=== PATIENT | male | born 1970 | race African-American/Black ===

== ENCOUNTER 2016-11-13 06:15 | Day surgery (SDC) | payer MEDICARE, MEDICAID ==
[2016-11-13 07:22] LABS: HEMATOCRIT 32.7 % (37.9-51.0); HEMOGLOBIN 10.3 g/dL (13.5-17.0); HGB HCT DIFFERENCE -1.8; MEAN CORPUSCULAR HEMOGLOBIN 26.1 pg (27.0-33.4); MEAN CORPUSCULAR HGB CONC 31.5 g/dL (32.0-36.0); MEAN CORPUSCULAR VOLUME 83 fl (80-97); RED BLOOD COUNT 3.94 10^6/uL (4.35-5.55); RED CELL DISTRIBUTION WIDTH 14.8 % (11.5-14.0); WHITE BLOOD COUNT 5.8 10^3/uL (4.0-10.5)
[2016-11-13 07:50] LABS: ANION GAP 17 (5-19); BLOOD UREA NITROGEN 39 mg/dL (7-20); CALCIUM 9.2 mg/dL (8.4-10.2); CARBON DIOXIDE 27 mmol/L (22-30); CHLORIDE 101 mmol/L (98-107); CREATININE RESULT 10.19 mg/dL (0.52-1.25); GLUCOSE 79 mg/dL (75-110); POTASSIUM 4.3 mmol/L (3.6-5.0); SODIUM 144.5 mmol/L (137-145)
[2016-11-13] MEDS ORDERED: LISINOPRIL 5 MG TABLET PO ONE (09:00)
--- NOTE | 2016-11-13 10:29 | PDOC DISCHARGE SUMMARY ---
Discharge Summary (SDC) - Discharge Final Diagnosis: #1 malfunctioning transposed basilic vein fistula of the right upper extremity. #2 right upper extremity swelling. #3 end-stage renal disease on hemodialysis. #4 hypertension. Date of Surgery: 11/13/16 Discharge Date: 11/13/16 Condition: Good Treatment or Instructions: #1 activities within moderation encouraged. #2 follow up in my office by appointment in about 1 month. Call for appointment. #3 the wounds covered clean and dry until hemodialysis. #4 hold off on school/work until evaluation in office. #5 may shower in 48 hours, keep operated area as dry as possible. #6 discharge from ambulatory when ASU criteria met. #7 medications per medication reconciliation sheet. #8 May have one Percocet up to every 4 hours when necessary for pain greater than 4 out of 10 while in the ASU Discharge Diet: Other (Comments) - Renal Respiratory Treatments at Home: Deep Breathing/Coughing Discharge Activity: Activity As Tolerated Report the Following to Your Physician Immediately: Unusual Bleeding
[2016-11-13 11:18] VITALS: BP 187/95
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
--- NOTE | 2016-11-13 14:04 | Operative Report ---
Operative Report DATE OF SURGERY: 11/13/16 PREOPERATIVE DIAGNOSIS: #1 malfunctioning arteriovenous fistula, right transposed basilic to brachial. #2 end-stage renal disease on hemodialysis. # 3 hypertension POSTOPERATIVE DIAGNOSIS: #1 malfunctioning arteriovenous fistula, right transposed basilic to brachial. #2 end-stage renal disease on hemodialysis. # 3 hypertension OPERATION: #1 ultrasound evaluation and real-time access into right arm arteriovenous fistula. #2 angioplasty centrally in the innominate subclavian junction. #3 angioplasty in [place] arteriovenous fistula. #4 angiogram and interpretation. SURGEON: AMANDA SAENZ CRM SOLUTION ARCHITECT: none ANESTHESIA: Moderate Sedation TISSUE REMOVED OR ALTERED: Not applicable. COMPLICATIONS: None ESTIMATED BLOOD LOSS: 2 mL. INTRAOPERATIVE FINDINGS: Of extreme swelling in the right upper extremity to the point was somewhat challenging to palpate the fistula. It was successfully visualized on ultrasound. Considerable edema noted particularly in the distal arm. The fistula itself was accessed under ultrasound guidance. The fistula had a moderate area of stenosis within it. Otherwise a main stenosis was be in the stent at about the subclavian to innominate junction.This estimated to be about 80% of the adjacent lumen. Successfully addressed up to 10 mm. Much improved flow after angioplasty. Anticipation of decreased swelling also. PROCEDURE: PROCEDURE: After verifying the procedure and having obtained informed consent, the patient's right arm was prepared with Chlorhexidine and draped out with sterile linen. Local anesthesia infiltrated. Percutaneous access into the fistula ,[ antegrade], obtained about [6 cm] from the arteriovenous anastomosis using a micro puncture needle followed by micro puncture wire and then a micro puncture catheter. This was done under real-time ultrasound guidance. Angiogram demonstrated the aforementioned findings. Angioplasty was elected. A 0.035 [place] wire was inserted, and over this, a 7 [place] short introducer was placed, this was followed by a [7-mm ] angioplasty balloon . Angioplasty was done from the upper superior vena cava to the subclavian. This was done using a 9 mm angioplasty balloon. Inflating up to 14 khoi for 2 minutes. Completion angiogram demonstrated residual stenosis. A 10 mm angioplasty balloon was inserted over the area of stenosis and inflated up to 14 khoi. After deflation a completion angiogram demonstrated resolution of the stenosis. The 10 mm angioplasty balloon was now inflated sequentially serially done from the upper fistula down to the introducer. Inflating up to 10 atmospheres for 30 seconds at a time.]. Completion angiogram demonstrated [satisfactory result]. The instrumentation was now withdrawn over firm pressure. Dressings applied, procedure concluded. Exposure time: 1.9 minutes Radiation: 118/cm Contrast: 25 mils of Isovue-M 300, low osmolality. DICTATING PHYSICIAN: AMANDA CRAWFORD M.D. cc: AMANDA CRAWFORD M.D. ([id number]) >>
== END 2016-11-13 11:10 | disposition home or self-care (01) ==
LOC: CCL 06:15
PROVIDERS: ATTEND Surgery
PROC: 05793DZ Dilation of Right Brachial Vein with Intraluminal Device, Percutaneous Approach (ICD-10-PCS; principal; 2016-11-13)
DX: T82.858A Stenosis of other vascular prosthetic devices, implants and grafts, initial encounter (principal); Y83.2 Surgical operation with anastomosis, bypass or graft as the cause of abnormal reaction of the patient, or of later complication, without mention of misadventure at the time of the procedure; I12.0 Hypertensive chronic kidney disease with stage 5 chronic kidney disease or end stage renal disease; N18.6 End stage renal disease; Z99.2 Dependence on renal dialysis; Z79.899 Other long term (current) drug therapy
CPT/HCPCS: 36415; 85027; 80048; 36907; 36902; 76937; C1725; C1752; Q9967; C1769; J2250; J1644 ×2; J3010; J3490; A9270

== ENCOUNTER 2016-12-06 12:16 | Emergency (ER) | payer MEDICARE, MEDICAID ==
[2016-12-06 14:05] LABS: ABSOLUTE EOSINOPHILS # (AUTO) 0.2 10^3/uL (0.0-0.6); ABSOLUTE LYMPHOCYTES (AUTO) 1.3 10^3/uL (0.5-4.7); ABSOLUTE MONOCYTES (AUTO) 0.6 10^3/uL (0.1-1.4); ABSOLUTE NEUT (AUTO) 3.8 10^3/uL (1.7-8.2); BASOPHILS % (AUTO) 0.7 % (0-2); EOSINOPHILS % (AUTO) 2.9 % (0-6); HEMATOCRIT 29.8 % (37.9-51.0); HEMOGLOBIN 9.6 g/dL (13.5-17.0); LYMPHOCYTES % (AUTO) 22.4 % (13-45); MEAN CORPUSCULAR HEMOGLOBIN 26.3 pg (27.0-33.4); MEAN CORPUSCULAR HGB CONC 32.3 g/dL (32.0-36.0); MEAN CORPUSCULAR VOLUME 81 fl (80-97); MONOCYTES % (AUTO) 9.7 % (3-13); RED BLOOD COUNT 3.67 10^6/uL (4.35-5.55); RED CELL DISTRIBUTION WIDTH 14.3 % (11.5-14.0); SEGMENTED NEUTROPHILS % (AUTO) 64.3 % (42-78); WHITE BLOOD COUNT 5.9 10^3/uL (4.0-10.5)
[2016-12-06 14:22] LABS: ALANINE AMINOTRANSFERASE 17 U/L (21-72); ALBUMIN 4.5 g/dL (3.5-5.0); ALKALINE PHOSPHATASE 161 U/L (38-126); ANION GAP 18 (5-19); ASPARTATE AMINO TRANSFERASE 27 U/L (17-59); BILIRUBIN,DIRECT 0.5 mg/dL (0.0-0.4); BILIRUBIN,TOTAL 0.7 mg/dL (0.2-1.3); BLOOD UREA NITROGEN 62 mg/dL (7-20); CALCIUM 9.1 mg/dL (8.4-10.2); CARBON DIOXIDE 28 mmol/L (22-30); CHLORIDE 100 mmol/L (98-107); CREATINE KINASE 114 U/L (55-170); GLUCOSE 82 mg/dL (75-110); POTASSIUM 4.8 mmol/L (3.6-5.0); SODIUM 145.6 mmol/L (137-145); TOTAL PROTEIN 7.5 g/dL (6.3-8.2)
[2016-12-06] MEDS ORDERED: OXYCODONE-ACETAMINOPHEN 5-325 MG TABLET PO ONE (14:28)
[2016-12-06 14:29] LABS: CREATININE RESULT 16.26 mg/dL (0.52-1.25)
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
[2016-12-06 14:34] LABS: CREATINE KINASE MB 2.2 ng/mL (<4.55)
[2016-12-06] MEDS ORDERED: HYDRALAZINE HCL INJ/PF 20 MG/1 ML SDV IV ONE (14:34)
[2016-12-06 15:07] LABS: TROPONIN I 0.081 ng/mL
--- NOTE | 2016-12-06 15:07 | EKG REPORT ---
SEVERITY:- ABNORMAL ECG - SINUS RHYTHM PROBABLE LEFT ATRIAL ABNORMALITY NONSPECIFIC INTRAVENTRICULAR CONDUCTION DELAY LVH WITH SECONDARY REPOLARIZATION ABNORMALITY LATERAL Q WAVES, PROBABLY DUE TO LVH : Confirmed by: Aalyiah Campuzano 06-Dec-2016 15:06:19
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
[2016-12-06 20:56] VITALS: BP 166/94
== END 2016-12-06 20:59 | disposition home or self-care (01) ==
LOC: ER 12:16
PROC: 5A1D00Z (ICD-10-PCS; principal; 2016-12-06)
DX: I12.0 Hypertensive chronic kidney disease with stage 5 chronic kidney disease or end stage renal disease (principal); N18.6 End stage renal disease; Z99.2 Dependence on renal dialysis; Z91.15 Patient's noncompliance with renal dialysis; D63.1 Anemia in chronic kidney disease; J81.0 Acute pulmonary edema; R53.1 Weakness; R06.02 Shortness of breath; R05 Cough
CPT/HCPCS: 90970; 93005; 99291; 36415; 82553; 82550; 85025; 80053; 84484; 83880; 71010; 93010; A9270

== ENCOUNTER 2017-05-25 11:43 | Emergency (ER) | payer MEDICARE, MEDICAID ==
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
--- NOTE | 2017-05-25 12:43 | RADIOLOGY REPORT (SQ) ---
EXAM DESCRIPTION: CHEST PA/LAT COMPLETED DATE/TIME: 05/25/2017 12:19 pm REASON FOR STUDY: sob COMPARISON: 12/06/2016 NUMBER OF VIEWS: Two view TECHNIQUE: Frontal and lateral radiographic images of the chest acquired. LIMITATIONS: None. FINDINGS: LUNGS AND PLEURA: Interstitial edema. Small pleural effusions. MEDIASTINUM AND HILAR STRUCTURES: Stable heart size and mediastinal structures. HEART AND VASCULAR STRUCTURES: Cardiomegaly. Pulmonary vascular congestion. Stent overlying right a pex. BONES: No acute findings. HARDWARE: None in the chest. OTHER: No other significant finding. IMPRESSION: Congestive heart failure. TECHNICAL DOCUMENTATION: JOB ID: [id number] [employer]- All Rights Reserved
[2017-05-25 13:35] LABS: ALANINE AMINOTRANSFERASE 16 U/L (21-72); ALBUMIN 4.1 g/dL (3.5-5.0); ALKALINE PHOSPHATASE 130 U/L (38-126); ANION GAP 16 (5-19); ASPARTATE AMINO TRANSFERASE 27 U/L (17-59); BILIRUBIN,DIRECT 0.6 mg/dL (0.0-0.4); BILIRUBIN,TOTAL 0.7 mg/dL (0.2-1.3); BLOOD UREA NITROGEN 67 mg/dL (7-20); CALCIUM 8.9 mg/dL (8.4-10.2); CARBON DIOXIDE 29 mmol/L (22-30); CHLORIDE 101 mmol/L (98-107); CREATININE RESULT 13.42 mg/dL (0.52-1.25); GLUCOSE 106 mg/dL (75-110); POTASSIUM 4.5 mmol/L (3.6-5.0); SODIUM 145.8 mmol/L (137-145); TOTAL PROTEIN 7.3 g/dL (6.3-8.2)
[2017-05-25 13:36] LABS: ABSOLUTE BASOPHILS # (AUTO) 0.1 10^3/uL (0.0-0.2); ABSOLUTE EOSINOPHILS # (AUTO) 0.1 10^3/uL (0.0-0.6); ABSOLUTE LYMPHOCYTES (AUTO) 1.9 10^3/uL (0.5-4.7); ABSOLUTE MONOCYTES (AUTO) 0.4 10^3/uL (0.1-1.4); ABSOLUTE NEUT (AUTO) 3.6 10^3/uL (1.7-8.2); BASOPHILS % (AUTO) 1.5 % (0-2); EOSINOPHILS % (AUTO) 1.9 % (0-6); HEMATOCRIT 33.3 % (37.9-51.0); HEMOGLOBIN 10.7 g/dL (13.5-17.0); HGB HCT DIFFERENCE -1.2; MEAN CORPUSCULAR HEMOGLOBIN 27.7 pg (27.0-33.4); MEAN CORPUSCULAR HGB CONC 32.3 g/dL (32.0-36.0); MEAN CORPUSCULAR VOLUME 86 fl (80-97); RED BLOOD COUNT 3.87 10^6/uL (4.35-5.55); RED CELL DISTRIBUTION WIDTH 13.9 % (11.5-14.0); SEGMENTED NEUTROPHILS % (AUTO) 58.6 % (42-78); WHITE BLOOD COUNT 6.2 10^3/uL (4.0-10.5)
[2017-05-25] MEDS ORDERED: NORMAL SALINE 1000 ML 1,000 ML IV PRN (16:22)
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
[2017-05-25] MEDS ORDERED: APIXABAN 5 MG TABLET PO ONE ×2 (17:12→20:00)
[2017-05-25] MEDS ORDERED: HEPARIN SOD (PORCINE) 1,000 UNIT/ML 10 ML VIAL ONE (17:25)
--- NOTE | 2017-05-25 17:27 | EKG REPORT ---
SEVERITY:- ABNORMAL ECG - SINUS RHYTHM VENTRICULAR PREMATURE COMPLEX SHORT MO INTERVAL, ACCELERATED AV CONDUCTION NONSPECIFIC INTRAVENTRICULAR CONDUCTION DELAY : Confirmed by: Aaliyah Campuzano 25-May-2017 17:26:20
--- NOTE | 2017-05-25 18:08 | RADIOLOGY REPORT (SQ) ---
EXAM DESCRIPTION: VENOUS UNILATERAL UPPER COMPLETED DATE/TIME: 05/25/2017 5:57 pm REASON FOR STUDY: bilateral Internal Jugular LUE EDEMA COMPARISON: None. TECHNIQUE: Dynamic and static santoro scale and color images acquired of the left arm venous system. Se lected spectral images acquired with additional compression and augmentation maneuvers. The contralat eral subclavian vein and internal jugular vein were also imaged. Images stored on PACS. LIMITATIONS: None. FINDINGS: INTERNAL JUGULAR VEIN: Normal phasicity, compression, augmentation. No visualized echogeni c material on santoro scale. No defects on color images. Comparison opposite side normal. SUBCLAVIAN VEIN: Normal compression, augmentation. No visualized echogenic material on santoro scale. No defects on color images. AXILLARY VEIN: Normal compression, augmentation. No visualized echogenic material on santoro scale. No d efects on color images. BRACHIAL VEIN: Normal compression, augmentation. No visualized echogenic material on santoro scale. No d efects on color images. BASILIC VEIN: Normal compression, augmentation. No visualized echogenic material on santoro scale. No de fects on color images. CEPHALIC VEIN: Normal compression, augmentation. No visualized echogenic material on santoro scale. No d efects on color images. OTHER: No other significant finding. CONTRALATERAL SUBCLAVIAN VEIN AND INTERNAL JUGULAR VEIN: Thrombus is present in the right internal jugular vein and proximal right subclavian vein. IMPRESSION: 1. NO EVIDENCE DVT OR SVT RIGHT OR LEFT ARM. 2. THERE IS THROMBOSIS OF THE RIGHT INTERNAL JUGULAR VEIN AND PROXIMAL RIGHT SUBCLAVIAN VEIN. TECHNICAL DOCUMENTATION: JOB ID: [id number] [employer]- All Rights Reserved
[2017-05-25] MEDS ORDERED: HEPARIN SOD (PORCINE) 1,000 UNIT/ML 10 ML VIAL IV PRN (18:45)
[2017-05-25] MEDS ORDERED: OXYCODONE-ACETAMINOPHEN 5-325 MG TABLET PO ONE (19:28)
[2017-05-25 19:36] VITALS: BP 182/90
== END 2017-05-25 20:30 | disposition home or self-care (01) ==
LOC: ER 11:43
DX: I82.B19 Acute embolism and thrombosis of unspecified subclavian vein (principal); I82.C11 Acute embolism and thrombosis of right internal jugular vein; I50.42 Chronic combined systolic (congestive) and diastolic (congestive) heart failure; I15.1 Hypertension secondary to other renal disorders; Z91.15 Patient's noncompliance with renal dialysis; R22.0 Localized swelling, mass and lump, head
CPT/HCPCS: 93005; 99284; 36415; 85025; 80053; 83880; 93971; 71020; 93010; G0257; J1644; A9270 ×2

== ENCOUNTER 2017-08-14 09:18 | Emergency (ER) | payer MEDICARE, MEDICAID ==
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
[2017-08-14 10:16] LABS: ABSOLUTE EOSINOPHILS # (AUTO) 0.2 10^3/uL (0.0-0.6); ABSOLUTE LYMPHOCYTES (AUTO) 1.1 10^3/uL (0.5-4.7); ABSOLUTE MONOCYTES (AUTO) 0.5 10^3/uL (0.1-1.4); ABSOLUTE NEUT (AUTO) 3.2 10^3/uL (1.7-8.2); BASOPHILS % (AUTO) 0.8 % (0-2); EOSINOPHILS % (AUTO) 3.9 % (0-6); HEMATOCRIT 32.5 % (37.9-51.0); HEMOGLOBIN 10.3 g/dL (13.5-17.0); LYMPHOCYTES % (AUTO) 22.2 % (13-45); MEAN CORPUSCULAR HEMOGLOBIN 27.2 pg (27.0-33.4); MEAN CORPUSCULAR HGB CONC 31.9 g/dL (32.0-36.0); MEAN CORPUSCULAR VOLUME 85 fl (80-97); MONOCYTES % (AUTO) 10.6 % (3-13); PLATELET COUNT 220 10^3/uL (150-450); RED CELL DISTRIBUTION WIDTH 15.4 % (11.5-14.0); SEGMENTED NEUTROPHILS % (AUTO) 62.5 % (42-78); TOTAL CELLS COUNTED % (AUTO) 100 %; WHITE BLOOD COUNT 5.1 10^3/uL (4.0-10.5)
[2017-08-14 10:36] LABS: ANION GAP 17 (5-19); BLOOD UREA NITROGEN 48 mg/dL (7-20); CALCIUM 8.9 mg/dL (8.4-10.2); CARBON DIOXIDE 27 mmol/L (22-30); CHLORIDE 104 mmol/L (98-107); GLUCOSE 73 mg/dL (75-110); POTASSIUM 5.1 mmol/L (3.6-5.0); SODIUM 147.7 mmol/L (137-145)
[2017-08-14] MEDS ORDERED: OXYCODONE-ACETAMINOPHEN 5-325 MG TABLET PO ONE (10:44)
--- NOTE | 2017-08-14 11:16 | RADIOLOGY REPORT (SQ) ---
EXAM DESCRIPTION: CHEST PA/LAT COMPLETED DATE/TIME: 08/14/2017 11:06 am REASON FOR STUDY: missed dialysis, sob COMPARISON: 05/25/2017. NUMBER OF VIEWS: Two views. TECHNIQUE: Frontal and lateral radiographic views of the chest acquired. LIMITATIONS: None. FINDINGS: LUNGS AND PLEURA: No opacities, masses or pneumothorax. Bilateral pleural effusions. MEDIASTINUM AND HILAR STRUCTURES: No masses or contour abnormality. HEART AND VASCULAR STRUCTURES: Cardiac enlargement. Vascular congestion. BONES: No acute findings. HARDWARE: Right-sided stent. OTHER: No other significant finding. IMPRESSION: CARDIOMEGALY WITH VASCULAR CONGESTION AND BILATERAL PLEURAL EFFUSIONS. TECHNICAL DOCUMENTATION: JOB ID: [id number] [employer]- All Rights Reserved
--- NOTE | 2017-08-14 11:54 | EKG REPORT ---
SEVERITY:- ABNORMAL ECG - SINUS RHYTHM NONSPECIFIC INTRAVENTRICULAR CONDUCTION DELAY PROBABLE LATERAL INFARCT, AGE INDETERMINATE : Confirmed by: Aaliyah Campuzano 14-Aug-2017 11:53:19
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
[2017-08-14] MEDS ORDERED: LISINOPRIL 5 MG TABLET PO ONE (12:29)
[2017-08-14 14:00] VITALS: BP 181/85
== END 2017-08-14 14:00 | disposition home or self-care (01) ==
LOC: ER 09:18
DX: I12.0 Hypertensive chronic kidney disease with stage 5 chronic kidney disease or end stage renal disease (principal); N18.6 End stage renal disease; Z99.2 Dependence on renal dialysis; Z91.15 Patient's noncompliance with renal dialysis; J90 Pleural effusion, not elsewhere classified
CPT/HCPCS: 93005; 99285; 36415; 85025; 80048; 71020; 93010; A9270 ×2

== ENCOUNTER 2017-08-16 06:05 | Observation (INO) | payer MEDICARE, MEDICAID ==
[2017-08-16] MEDS ORDERED: ASPIRIN 81 MG TABLET, CHEWABLE PO ONE (06:27)
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
[2017-08-16 06:59] LABS: HEMATOCRIT 32.3 % (37.9-51.0); HEMOGLOBIN 10.4 g/dL (13.5-17.0); HGB HCT DIFFERENCE -1.1; MEAN CORPUSCULAR HEMOGLOBIN 27.1 pg (27.0-33.4); MEAN CORPUSCULAR HGB CONC 32.1 g/dL (32.0-36.0); MEAN CORPUSCULAR VOLUME 84 fl (80-97); RED BLOOD COUNT 3.84 10^6/uL (4.35-5.55); RED CELL DISTRIBUTION WIDTH 15.5 % (11.5-14.0)
--- NOTE | 2017-08-16 07:23 | RADIOLOGY REPORT (SQ) ---
EXAM DESCRIPTION: CHEST SINGLE VIEW CLINICAL HISTORY: 47 years, Male, Shortness of breath COMPARISON: 08/14/2017. NUMBER OF VIEWS: 1. TECHNIQUE: Frontal. LIMITATIONS: None. FINDINGS: Small left pneumothorax with pleural separation measuring 1.0 cm. Moderate bibasilar opacity-effusion. Moderate lung volume. Mild interstitial markings. Moderate enlargement of the cardiac silhouette. Stent material of the medial right upper hemithorax. IMPRESSION: New small left pneumothorax. Stable bibasilar opacity-effusion. 2011 [employer]- All Rights Reserved
[2017-08-16 07:26] LABS: ABSOLUTE EOSINOPHILS# (MANUAL) 0.1 10^3/uL (0.0-0.6); BASOPHILS % (MANUAL) 0 % (0-2); EOSINOPHILS % (MANUAL) 1 % (0-6); LYMPHOCYTES % (MANUAL) 25 % (13-45); TOTAL CELLS COUNTED 100
[2017-08-16 07:28] LABS: ANISOCYTOSIS SLIGHT; HYPOCHROMASIA SLIGHT; TOXIC GRANULATION SLIGHT
[2017-08-16 08:09] LABS: ALANINE AMINOTRANSFERASE 19 U/L (21-72); ALBUMIN 3.9 g/dL (3.5-5.0); ALKALINE PHOSPHATASE 115 U/L (38-126); ANION GAP 16 (5-19); ASPARTATE AMINO TRANSFERASE 25 U/L (17-59); BILIRUBIN,DIRECT 0.6 mg/dL (0.0-0.4); BILIRUBIN,TOTAL 0.6 mg/dL (0.2-1.3); BLOOD UREA NITROGEN 68 mg/dL (7-20); CALCIUM 8.4 mg/dL (8.4-10.2); CARBON DIOXIDE 25 mmol/L (22-30); CHLORIDE 106 mmol/L (98-107); CREATINE KINASE 88 U/L (55-170); CREATININE RESULT 12.55 mg/dL (0.52-1.25); GLUCOSE 74 mg/dL (75-110); POTASSIUM 5.3 mmol/L (3.6-5.0); SODIUM 146.6 mmol/L (137-145)
[2017-08-16 08:28] LABS: CREATINE KINASE MB 3.03 ng/mL (<4.55)
[2017-08-16 08:31] LABS: TROPONIN I 0.152 ng/mL
[2017-08-16] MEDS ORDERED: HYDROCODONE/ACETAMINOPHEN 5-325 MG TABLET PO ONE (09:14)
--- NOTE | 2017-08-16 09:21 | EKG REPORT ---
SEVERITY:- ABNORMAL ECG - SINUS RHYTHM NONSPECIFIC INTRAVENTRICULAR CONDUCTION DELAY PROBABLE ANTEROLATERAL INFARCT, OLD LVH WITH SECONDARY ST-T CHANGES : Confirmed by: Aaliyah Campuzano 16-Aug-2017 09:20:53
[2017-08-16] MEDS ORDERED: ACETAMINOPHEN 325 MG TABLET PO PRN (11:23)
[2017-08-16] MEDS ORDERED: OXYCODONE-ACETAMINOPHEN 5-325 MG TABLET PO PRN (11:23)
[2017-08-16] MEDS ORDERED: IPRATROPIUM/ALBUTEROL 0.5-2.5 MG/3 ML AMPUL NEB PRN (11:23)
[2017-08-16] MEDS ORDERED: ONDANSETRON HCL INJ/PF 4 MG/2 ML SDV IV PRN (11:23)
[2017-08-16] MEDS ORDERED: MAG HYDROX/AL HYDROX/SIMETH SUSP 30 ML UDCUP PO PRN (11:23)
[2017-08-16 11:42] LABS: PROTHROMBIN TIME 28.2 SEC (11.4-15.4)
[2017-08-16] MEDS: CALCIUM CARBONATE 500 MG TAB.CHEW PO SCH ×2 (11:49→18:04)
[2017-08-16] MEDS ORDERED: NORMAL SALINE 1000 ML 1,000 ML IV PRN (13:03)
[2017-08-16] MEDS ORDERED: DEXTROSE 40% GEL 15 GM TUBE PO PRN ×2 (13:07)
[2017-08-16] MEDS ORDERED: DEXTROSE 50%-WATER 25 GM/50 ML DISP.SYRIN IV PRN ×2 (13:07)
[2017-08-16] MEDS ORDERED: GLUCAGON,HUMAN RECOMB 1 MG INJ IM PRN (13:07)
[2017-08-16] MEDS ORDERED: INSULIN LISPRO 100 UNIT/ML 3 ML VIAL SUBCUT PRN (13:07)
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
[2017-08-16] MEDS ORDERED: HEPARIN SOD (PORCINE) 5,000 UNIT/ML 1 ML SYRINGE SUBCUT SCH (14:00)
[2017-08-16] MEDS: HYDRALAZINE HCL INJ/PF 20 MG/1 ML SDV IV PRN (18:04)
[2017-08-16] MEDS: OXYCODONE HCL IR 5 MG TABLET PO PRN (18:04)
[2017-08-16] MEDS ORDERED: WARFARIN SODIUM 5 MG TABLET PO SCH (22:00)
[2017-08-16] MEDS: FAMOTIDINE 20 MG TABLET PO SCH (22:38)
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
[2017-08-17] MEDS: OXYCODONE HCL IR 5 MG TABLET PO PRN ×2 (01:42→10:36)
[2017-08-17] MEDS ORDERED: NORMAL SALINE 1000 ML 1,000 ML IV PRN (05:00)
[2017-08-17 07:29] LABS: HEMATOCRIT 29.9 % (37.9-51.0); HEMOGLOBIN 9.6 g/dL (13.5-17.0); HGB HCT DIFFERENCE -1.1; MEAN CORPUSCULAR HEMOGLOBIN 26.9 pg (27.0-33.4); MEAN CORPUSCULAR VOLUME 84 fl (80-97); RED BLOOD COUNT 3.57 10^6/uL (4.35-5.55); RED CELL DISTRIBUTION WIDTH 14.7 % (11.5-14.0); WHITE BLOOD COUNT 5.1 10^3/uL (4.0-10.5)
[2017-08-17] MEDS: CALCIUM CARBONATE 500 MG TAB.CHEW PO SCH ×3 (07:41→18:56)
[2017-08-17 08:15] LABS: ANION GAP 15 (5-19); BLOOD UREA NITROGEN 49 mg/dL (7-20); CALCIUM 8.5 mg/dL (8.4-10.2); CARBON DIOXIDE 27 mmol/L (22-30); CHLORIDE 100 mmol/L (98-107); GLUCOSE 68 mg/dL (75-110); POTASSIUM 5.4 mmol/L (3.6-5.0); SODIUM 141.5 mmol/L (137-145)
[2017-08-17] MEDS ORDERED: DOCUSATE SODIUM 100 MG CAPSULE PO SCH (10:00)
[2017-08-17] MEDS ORDERED: MULTIVITAMIN TABLET PO SCH (10:00)
[2017-08-17] MEDS ORDERED: WARFARIN SODIUM PO SCH (10:00)
[2017-08-17] MEDS: FAMOTIDINE 20 MG TABLET PO SCH (10:36)
[2017-08-17 12:25] VITALS: BP 167/91
--- NOTE | 2017-08-17 12:36 | RADIOLOGY REPORT (SQ) ---
EXAM DESCRIPTION: CHEST PA/LAT COMPLETED DATE/TIME: 08/17/2017 7:53 am REASON FOR STUDY: dyspnea COMPARISON: 08/14/2017 EXAM PARAMETERS: NUMBER OF VIEWS: two views TECHNIQUE: Digital Frontal and Lateral radiographic views of the chest acquired. RADIATION DOSE: NA LIMITATIONS: none FINDINGS: LUNGS AND PLEURA: Bilateral pleural effusions are seen once again. Cannot exclude posteri or inferior infiltrate on the lateral view. MEDIASTINUM AND HILAR STRUCTURES: No masses or contour abnormalities. HEART AND VASCULAR STRUCTURES: Borderline cardiomegaly. BONES: No acute findings. HARDWARE: None in the chest. OTHER: No other significant finding. IMPRESSION: Borderline cardiomegaly with bilateral pleural effusions. Cannot exclude a lower lobe p neumonia. TECHNICAL DOCUMENTATION: JOB ID: [id number] [employer]- All Rights Reserved
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
--- NOTE | 2017-08-17 16:15 | PDOC PROGRESS REPORT ---
Subjective Progress Note for:: 08/17/17 Subjective:: I am seeing the patient on hemodialysis this afternoon. His facial swelling is actually improved compared to yesterday. Patient shortness of breath has resolved and he is breathing in room air good oxygen saturation. His blood pressure is slightly elevated during dialysis but usually this goes down at the end of dialysis treatment. He does not otherwise have other complaints. Reason For Visit: PNEUMOTHORAX, END-STAGE RENAL DISEASE Physical Exam Vital Signs: Temp Pulse Resp BP Pulse Ox 97.9 F 82 20 167/91 H 97 08/17/17 11:45 08/17/17 11:45 08/17/17 11:45 08/17/17 11:45 08/17/17 11:45 Intake & Output 08/16/17 08/17/17 08/18/17 06:59 06:59 06:59 Intake Total 544 Output Total 4900 Balance -4356 Weight 86.7 kg Vitals during dialysis at this time: Blood pressure 185/102, heart rate of 84, oxygen saturation 97% at room air, blood flow rate of 450 mL/min and dialysate flow rate of 800 mL/min. Exam: General appearance: PRESENT: no acute distress, cooperative, well-developed, well-nourished Head exam: PRESENT: atraumatic, normocephalic, facial swelling has improved compared to yesterday although he still has some swelling including right periorbital swelling but still better than yesterday. Eye exam: PRESENT: conjunctiva pink, PERRLA. ABSENT: scleral icterus Neck exam: ABSENT: JVD Respiratory exam: PRESENT: Normal breath sounds. ABSENT: crackles, rales, rhonchi, unlabored, wheezes Cardiovascular exam: PRESENT: Regular rate rhythm -+S1, +S2. ABSENT: diastolic murmur, systolic murmur GI/Abdominal exam: PRESENT: normal bowel sounds, soft. ABSENT: guarding, mass, tenderness Extremities exam: He has grade 1 bilateral lower extremity edema Neurological exam: PRESENT: alert, awake, oriented to person, place and time. Skin exam: PRESENT: dry, warm, Results Laboratory Results: 08/17/17 06:18 08/17/17 06:18 08/17/17 08/17/17 06:18 06:18 WBC 5.1 RBC 3.57 L Hgb 9.6 L Hct 29.9 L MCV 84 MCH 26.9 L MCHC 32.0 RDW 14.7 H Plt Count 179 Sodium 141.5 Potassium 5.4 H Chloride 100 Carbon Dioxide 27 Anion Gap 15 BUN 49 H Creatinine 9.50 H Est GFR ( Amer) 7 L Est GFR (Non-Af Amer) 6 L Glucose 68 L Calcium 8.5 08/16/17 08/16/17 11:27 17:34 Troponin I 0.138 0.140 Impressions: Chest X-Ray 08/17/17 06:00 IMPRESSION: Borderline cardiomegaly with bilateral pleural effusions. Cannot exclude a lower lobe pneumonia. Assessment & Plan - Diagnosis (1) End stage renal disease on dialysis Is this a current diagnosis for this admission?: Yes Plan: We are doing dialysis today for 3 hours, using the patient's AV fistula, with 2 potassium bath, blood flow rate of 450 mL per minute, dialysate flow rate of 800 mL per minute, ultrafiltration 4 L as tolerated, no heparin and no Procrit during dialysis . Patient will be monitored throughout dialysis treatment. After today's dialysis I think patient can be safely discharged home from nephrology standpoint if all other medical issues are doing fine. Patient should go back to his dialysis unit under the care of his senior clinical sas programmer in [place] and dialyzed there on his scheduled time. Patient is greatly encouraged to be compliant on his dialysis treatments. (2) Fluid overload Is this a current diagnosis for this admission?: Yes Plan: This is due to missing hemodialysis treatment. This is much improved with dialysis. (3) Anemia in chronic kidney disease (CKD) Is this a current diagnosis for this admission?: Yes (4) HTN (hypertension) Is this a current diagnosis for this admission?: Yes Plan: Slightly elevated during dialysis treatment but usually this comes down after dialysis and ultrafiltration. (5) Hyperkalemia Is this a current diagnosis for this admission?: Yes Plan: Mild. We use a low potassium bath at dialysis. (6) Hypernatremia Is this a current diagnosis for this admission?: Yes Plan: Resolved. (7) Pneumothorax Is this a current diagnosis for this admission?: Yes Plan: Defer to the hospitalist. - Time Time with patient: 15-25 minutes
[2017-08-17] MEDS: HYDRALAZINE HCL INJ/PF 20 MG/1 ML SDV IV PRN (18:57)
== END 2017-08-17 20:13 | disposition home or self-care (01) ==
LOC: ER 06:05 → INTOOBSV 11:17 → EH 11:17 → 5 17:01
PROVIDERS: ADMIT Internal Medicine; ATTEND Internal Medicine
PROC: 5A1D70Z Performance of Urinary Filtration, Intermittent, Less than 6 Hours Per Day (ICD-10-PCS; principal; 2017-08-16)
PROC: 5A1D70Z Performance of Urinary Filtration, Intermittent, Less than 6 Hours Per Day (ICD-10-PCS; 2017-08-17)
DX: J93.9 Pneumothorax, unspecified (principal); I51.7 Cardiomegaly; J90 Pleural effusion, not elsewhere classified; I13.2 Hypertensive heart and chronic kidney disease with heart failure and with stage 5 chronic kidney disease, or end stage renal disease; E11.22 Type 2 diabetes mellitus with diabetic chronic kidney disease; N18.6 End stage renal disease; I50.9 Heart failure, unspecified; D63.1 Anemia in chronic kidney disease; R79.89 Other specified abnormal findings of blood chemistry; E87.5 Hyperkalemia; E87.0 Hyperosmolality and hypernatremia; G89.21 Chronic pain due to trauma; M25.562 Pain in left knee; S81.002S Unspecified open wound, left knee, sequela; W34.00XS Accidental discharge from unspecified firearms or gun, sequela; I82.B21 Chronic embolism and thrombosis of right subclavian vein; E75.21 Fabry (-Anderson) disease; E66.01 Morbid (severe) obesity due to excess calories; L98.8 Other specified disorders of the skin and subcutaneous tissue; Z79.01 Long term (current) use of anticoagulants; Z99.2 Dependence on renal dialysis; Z91.15 Patient's noncompliance with renal dialysis; Z59.8 Other problems related to housing and economic circumstances; Z82.49 Family history of ischemic heart disease and other diseases of the circulatory system; Z84.1 Family history of disorders of kidney and ureter; Z68.26 Body mass index [BMI] 26.0-26.9, adult
CPT/HCPCS: 93005; 99291; 36415 ×2; 82553; 82962 ×2; 82550; 85025; 85027; 85610; 80048; 80053; 84484; 71020; 71010; 93010; 94640; G0378 ×3; A9270 ×13; J0360 ×2; J3490 ×2; G0257 ×2; J7620

== ENCOUNTER 2017-08-21 13:07 | Inpatient (IN) | payer MEDICARE, MEDICAID ==
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
[2017-08-21 14:05] LABS: ABSOLUTE EOSINOPHILS # (AUTO) 0.4 10^3/uL (0.0-0.6); ABSOLUTE LYMPHOCYTES (AUTO) 1.2 10^3/uL (0.5-4.7); ABSOLUTE MONOCYTES (AUTO) 0.5 10^3/uL (0.1-1.4); ABSOLUTE NEUT (AUTO) 2.9 10^3/uL (1.7-8.2); BASOPHILS % (AUTO) 0.5 % (0-2); EOSINOPHILS % (AUTO) 7.2 % (0-6); HEMATOCRIT 30.5 % (37.9-51.0); HEMOGLOBIN 9.9 g/dL (13.5-17.0); HGB HCT DIFFERENCE -0.8; LYMPHOCYTES % (AUTO) 23.3 % (13-45); MEAN CORPUSCULAR HEMOGLOBIN 26.8 pg (27.0-33.4); MEAN CORPUSCULAR HGB CONC 32.6 g/dL (32.0-36.0); MEAN CORPUSCULAR VOLUME 82 fl (80-97); MONOCYTES % (AUTO) 10.1 % (3-13); RED BLOOD COUNT 3.72 10^6/uL (4.35-5.55); SEGMENTED NEUTROPHILS % (AUTO) 58.9 % (42-78); WHITE BLOOD COUNT 4.9 10^3/uL (4.0-10.5)
[2017-08-21 14:12] LABS: PROTHROMBIN TIME 32.2 SEC (11.4-15.4)
[2017-08-21 14:26] LABS: ALANINE AMINOTRANSFERASE 28 U/L (21-72); ALBUMIN 4.2 g/dL (3.5-5.0); ALKALINE PHOSPHATASE 111 U/L (38-126); ANION GAP 16 (5-19); ASPARTATE AMINO TRANSFERASE 27 U/L (17-59); BILIRUBIN,DIRECT 0.7 mg/dL (0.0-0.4); BILIRUBIN,TOTAL 0.7 mg/dL (0.2-1.3); BLOOD UREA NITROGEN 70 mg/dL (7-20); CALCIUM 9.1 mg/dL (8.4-10.2); CARBON DIOXIDE 31 mmol/L (22-30); CHLORIDE 99 mmol/L (98-107); CREATININE RESULT 12.83 mg/dL (0.52-1.25); GLUCOSE 110 mg/dL (75-110); POTASSIUM 5.7 mmol/L (3.6-5.0); SODIUM 145.5 mmol/L (137-145); TOTAL PROTEIN 7.5 g/dL (6.3-8.2)
[2017-08-21] MEDS ORDERED: SODIUM POLYSTYRENE SULFONATE 15 GM/60 ML PO ONE ×2 (20:22→23:25)
[2017-08-21] MEDS ORDERED: INSULIN REG, HUMAN 100 UNIT/ML 3 ML VIAL (PYX) IV ONE (20:27)
[2017-08-21] MEDS ORDERED: CALCIUM GLUCONATE 1000 MG/10 ML INJ IV ONE (20:28)
[2017-08-21] MEDS ORDERED: SODIUM BICARBONATE 4.2% INJ (2.4 MEQ/5 ML) VIAL INJ ONE (20:28)
[2017-08-21] MEDS ORDERED: DEXTROSE 50%-WATER 25 GM/50 ML DISP.SYRIN IV ONE (20:28)
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
[2017-08-21] MEDS ORDERED: ACETAMINOPHEN SOLN 325 MG/10.15 ML UDCUP PO ONE (20:40)
--- NOTE | 2017-08-21 21:08 | RADIOLOGY REPORT (SQ) ---
EXAM DESCRIPTION: CHEST SINGLE VIEW COMPLETED DATE/TIME: 08/21/2017 8:56 pm REASON FOR STUDY: cough COMPARISON: 08/17/2017. EXAM PARAMETERS: NUMBER OF VIEWS: One view. TECHNIQUE: Single frontal radiographic view of the chest acquired. RADIATION DOSE: NA LIMITATIONS: None. FINDINGS: LUNGS AND PLEURA: Bilateral pleural effusions with basilar densities, slightly worse. MEDIASTINUM AND HILAR STRUCTURES: No masses. Contour normal. HEART AND VASCULAR STRUCTURES: Cardiomegaly. BONES: No acute findings. HARDWARE: Vascular stent. OTHER: No other significant finding. IMPRESSION: CARDIOMEGALY. BILATERAL PLEURAL EFFUSIONS WITH BASILAR ATELECTASIS/ INFILTRATE, SLIGHTL Y WORSE. TECHNICAL DOCUMENTATION: JOB ID: [id number] [employer]- All Rights Reserved
[2017-08-21] MEDS ORDERED: PROMETHAZINE HCL 25 MG TABLET PO PRN (21:23)
[2017-08-21] MEDS ORDERED: ACETAMINOPHEN 325 MG TABLET PO PRN (21:23)
[2017-08-21 21:59] LABS: VENOUS BLOOD BASE EXCESS 5.9 mmol/L; VENOUS BLOOD HCO3 31.9 mmol/L (20-32); VENOUS BLOOD PCO2 53.4 mmHg (35-63); VENOUS BLOOD PH 7.39 (7.30-7.42)
[2017-08-21] MEDS ORDERED: AMLODIPINE BESYLATE 5 MG TABLET PO SCH (22:00)
[2017-08-21] MEDS ORDERED: WARFARIN SODIUM 5 MG TABLET PO SCH (22:00)
[2017-08-21] MEDS ORDERED: NITROGLYCERIN 2% OINTMENT 1 GM PACKET TP ONE (22:15)
[2017-08-21] MEDS ORDERED: NALOXONE HCL INJ/PF 0.4 MG/1 ML SDV IV ONE (22:20)
[2017-08-21] MEDS ORDERED: HYDRALAZINE HCL INJ/PF 20 MG/1 ML SDV IV PRN (22:21)
[2017-08-21] MEDS: HEPARIN SOD (PORCINE) 5,000 UNIT/ML 1 ML SYRINGE SUBCUT SCH (22:23)
[2017-08-21 22:36] LABS: ANION GAP 17 (5-19); BLOOD UREA NITROGEN 76 mg/dL (7-20); CALCIUM 8.8 mg/dL (8.4-10.2); CARBON DIOXIDE 26 mmol/L (22-30); CHLORIDE 102 mmol/L (98-107); CREATININE RESULT 13.49 mg/dL (0.52-1.25); GLUCOSE 92 mg/dL (75-110)
[2017-08-21 22:38] LABS: POTASSIUM 6.1 mmol/L (3.6-5.0)
[2017-08-21] MEDS ORDERED: SODIUM BICARBONATE 8.4% INJ 50 MEQ/50 ML DISP.SYRIN ONE (22:38)
--- NOTE | 2017-08-21 23:10 | EKG REPORT ---
SEVERITY:- ABNORMAL ECG - SINUS RHYTHM LEFT ATRIAL ABNORMALITY LVH WITH SECONDARY ST-T CHANGES : Confirmed by: Aaliyah Campuzano 21-Aug-2017 23:09:35
[2017-08-22] MEDS ORDERED: FUROSEMIDE INJ/PF 40 MG/4 ML SDV IV ONE (00:41)
[2017-08-22] MEDS ORDERED: DEXTROSE 50%-WATER 25 GM/50 ML DISP.SYRIN IV PRN ×2 (00:42)
[2017-08-22] MEDS ORDERED: GLUCAGON,HUMAN RECOMB 1 MG INJ IM PRN (00:42)
[2017-08-22] MEDS ORDERED: DEXTROSE 40% GEL 15 GM TUBE PO PRN ×2 (00:42)
[2017-08-22] MEDS ORDERED: INSULIN LISPRO 100 UNIT/ML 3 ML VIAL SUBCUT PRN (00:42)
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
[2017-08-22] MEDS ORDERED: FUROSEMIDE INJ/PF 40 MG/4 ML SDV ONE (00:59)
[2017-08-22] MEDS: NITROGLYCERIN 2% OINTMENT 1 GM PACKET TP SCH ×2 (02:56→08:02)
[2017-08-22 05:07] LABS: PROTHROMBIN TIME 33.3 SEC (11.4-15.4)
[2017-08-22 05:13] LABS: ABSOLUTE EOSINOPHILS # (AUTO) 0.3 10^3/uL (0.0-0.6); ABSOLUTE LYMPHOCYTES (AUTO) 0.8 10^3/uL (0.5-4.7); ABSOLUTE MONOCYTES (AUTO) 0.6 10^3/uL (0.1-1.4); ABSOLUTE NEUT (AUTO) 4.1 10^3/uL (1.7-8.2); BASOPHILS % (AUTO) 0.5 % (0-2); EOSINOPHILS % (AUTO) 4.5 % (0-6); HEMATOCRIT 30.4 % (37.9-51.0); HEMOGLOBIN 9.8 g/dL (13.5-17.0); MEAN CORPUSCULAR HEMOGLOBIN 26.7 pg (27.0-33.4); MEAN CORPUSCULAR HGB CONC 32.4 g/dL (32.0-36.0); MEAN CORPUSCULAR VOLUME 82 fl (80-97); MONOCYTES % (AUTO) 10.2 % (3-13); RED BLOOD COUNT 3.68 10^6/uL (4.35-5.55); RED CELL DISTRIBUTION WIDTH 14.7 % (11.5-14.0); SEGMENTED NEUTROPHILS % (AUTO) 70.8 % (42-78); WHITE BLOOD COUNT 5.8 10^3/uL (4.0-10.5)
[2017-08-22 05:27] LABS: BLOOD UREA NITROGEN 79 mg/dL (7-20); CALCIUM 8.8 mg/dL (8.4-10.2); CHLORIDE 102 mmol/L (98-107); CREATININE RESULT 13.86 mg/dL (0.52-1.25); GLUCOSE 61 mg/dL (75-110); MAGNESIUM 2.1 mg/dL (1.6-2.3); PHOSPHORUS 7.1 mg/dL (2.5-4.5); POTASSIUM 5.8 mmol/L (3.6-5.0)
[2017-08-22 05:37] LABS: CARBON DIOXIDE 26 mmol/L (22-30); SODIUM 148.4 mmol/L (137-145)
[2017-08-22 05:38] LABS: ANION GAP 20 (5-19)
[2017-08-22] MEDS: HEPARIN SOD (PORCINE) 5,000 UNIT/ML 1 ML SYRINGE SUBCUT SCH (06:01)
[2017-08-22 07:13] LABS: ARTERIAL BLOOD BASE EXCESS 3.4 mmol/L; ARTERIAL BLOOD O2 SATURATION 58.8 % (94-98)
[2017-08-22] MEDS ORDERED: CALCIUM CARBONATE 500 MG TAB.CHEW PO SCH ×2 (08:00)
[2017-08-22] MEDS ORDERED: LORAZEPAM INJ 2 MG/1 ML VIAL ONE (08:28)
[2017-08-22] MEDS ORDERED: PROPOFOL 100 ML IV ONE ×2 (08:45→11:44)
[2017-08-22] MEDS ORDERED: MIDAZOLAM HCL 100 ML IV PRN (08:46)
[2017-08-22 08:47] LABS: HEMATOCRIT 31.6 % (37.9-51.0); HEMOGLOBIN 10.1 g/dL (13.5-17.0); HGB HCT DIFFERENCE -1.3; MEAN CORPUSCULAR HEMOGLOBIN 26.6 pg (27.0-33.4); MEAN CORPUSCULAR HGB CONC 31.9 g/dL (32.0-36.0); MEAN CORPUSCULAR VOLUME 83 fl (80-97); RED BLOOD COUNT 3.79 10^6/uL (4.35-5.55); RED CELL DISTRIBUTION WIDTH 14.8 % (11.5-14.0); WHITE BLOOD COUNT 7.5 10^3/uL (4.0-10.5)
[2017-08-22] MEDS ORDERED: NITROGLYCERIN/D5W 50 MG/250 ML RTUINJ IV PRN ×2 (08:53→09:46)
[2017-08-22] MEDS ORDERED: INSULIN REG, HUMAN 100 UNIT/ML 3 ML VIAL (PYX) ONE (08:57)
[2017-08-22] MEDS ORDERED: PHARMACY COMMUNICATION ORDER MC NR (09:00)
[2017-08-22] MEDS ORDERED: LEVETIRACETAM 1000 MG/NACL-ISO 1,000 MG/100 ML RTUPB IV ONE (09:00)
[2017-08-22 09:01] LABS: BLOOD UREA NITROGEN 75 mg/dL (7-20); CALCIUM 8.7 mg/dL (8.4-10.2)
[2017-08-22 09:02] LABS: GLUCOSE 98 mg/dL (75-110)
[2017-08-22] MEDS ORDERED: NITROGLYCERIN/D5W 50 MG/250 ML RTUINJ IV ONE (09:02)
[2017-08-22] MEDS ORDERED: ACETAMINOPHEN 325 MG TABLET NG PRN (09:12)
[2017-08-22] MEDS ORDERED: DEXTROSE 40% GEL 15 GM TUBE NG PRN ×2 (09:13→09:14)
[2017-08-22] MEDS ORDERED: PROMETHAZINE HCL 25 MG TABLET NG PRN (09:15)
[2017-08-22 09:16] LABS: ARTERIAL BLOOD BASE EXCESS -3.8 mmol/L
[2017-08-22 09:20] LABS: CARBON DIOXIDE 21 mmol/L (22-30); CHLORIDE 104 mmol/L (98-107); POTASSIUM 5.2 mmol/L (3.6-5.0); SODIUM 150.9 mmol/L (137-145)
[2017-08-22 09:24] LABS: ANION GAP 26 (5-19); CREATININE RESULT 14.68 mg/dL (0.52-1.25)
[2017-08-22] MEDS ORDERED: FAMOTIDINE INJ/PF 20 MG/2 ML SDV IV ONE ×2 (09:26→12:00)
[2017-08-22] MEDS ORDERED: METHYLPREDNISOLONE INJ 125 MG/2 ML SDV IV ONE ×2 (09:26→14:00)
[2017-08-22] MEDS ORDERED: DIPHENHYDRAMINE HCL 50 MG/ML VIAL IV ONE (09:29)
[2017-08-22] MEDS ORDERED: AMLODIPINE BESYLATE 5 MG TABLET NG SCH (10:00)
[2017-08-22] MEDS ORDERED: (PENDING PHARMACY ID) (Multivitamin [Multivitamins] 1 TAB) PO SCH (10:00)
[2017-08-22] MEDS ORDERED: MULTIVITAMIN ORAL LIQUID 60 ML NG SCH (10:00)
[2017-08-22] MEDS ORDERED: MULTIVITAMIN TABLET PO SCH (10:00)
[2017-08-22] MEDS ORDERED: LISINOPRIL 5 MG TABLET PO SCH (10:00)
--- NOTE | 2017-08-22 10:14 | PROGRESS NOTE E ---
Progress Note NAME: PRATIBHA ALMAZAN : 1970 AGE: 47Y DATE: 08/22/2017 ROOM: 608 SUBJECTIVE: At approximately 8:20 this morning Rapid Response was called on the patient in the hemodialysis unit. The patient had not been started on dialysis when the seizure occurred. The patient did have symptoms of tonoclonic seizure in nature, resulted in the patient biting his tongue. The patient's Accu-Chek was found to be 90. Additionally, the patient was found to be significantly hypertensive with systolics of 230. The patient was found to have sonorous agonal-style respirations and subsequently was intubated. The patient had no reported episodes of hypoxia; however, the patient did have extremely rhonchorous breath sounds and the patient was intubated for airway protection. It is to be noted that the patient is on an CLARISSA inhibitor and the patient has significant facial and buccal edema and scleral periorbital edema concerning for possible angioedema. The patient was intubated by ACETYLENE TORCH BURNER who noted that the patient did have lingual and uvula edema as well. Surgery has been consulted for central line placement as well as CVP monitoring and arterial line placement. ABG is reflective of hypocapnic most likely underlying hypoxic respiratory failure with a mixed pattern acidosis. The patient is unable to voice any specific concerns at this time. I have made numerous contacts in an effort to discuss the case with family; however, voicemail has not been set up and one line has been discontinued. REVIEW OF SYSTEMS: Full review of systems cannot be appreciated given the patient's mental status. MEDICATIONS: Medications have been reviewed. OBJECTIVE: GENERAL: The patient is a 47-year-old -[place] male who is currently at this time intubated. He is not requiring sedation. He is postictal, who has been in distress. VITAL SIGNS: As follows: Temperature is 97.5, pulse 92, mechanical rate of 14 with oxygen saturation at 93% on 45% FIO2. SKIN: Dry. There is no rash. He is not diaphoretic. HEENT: The patient does have noted periorbital, periscleral edema as well as labial and lingual edema, ET tube in place. There is no evidence of JVP. CARDIOVASCULAR: Heart is regular, tachycardic. No rub. CHEST: Rhonchorous breath sounds are noted in upper lung murcia, quite diminished in the bases, symmetrical but mechanical at this time. ABDOMEN: Soft, nontender, nondistended. BACK: There is no sacral edema. EXTREMITIES: No clubbing, cyanosis, edema. PSYCHIATRIC: Unable to fully assess. DIAGNOSTICS: Lab values are as follows. Hematology obtained on 08/22/2017 at 0400 hours: WBCs are 5.8, hemoglobin is 9.8, hematocrit is 30.4, platelet count is 198,000. Coagulation obtained on 08/22/2017: PT is 13.3, INR is 3.09. Chemistry obtained on 08/22/2017 at 0400: Sodium is 148, potassium 5.8, chloride is 102, carbon dioxide 26, BUN 79, creatinine is 13.86, glucose 61, calcium is 8.8, phosphorus 7.1, magnesium is 2.2. IMPRESSION AND PLAN: 1. SEIZURE. The patient has no reported episodes of prior seizures. Multiple differentials do include hypertensive crisis; therefore, will start the patient on Keppra, proceed with seizure precautions and will obtain MRI of the brain and follow. 2. ANGIOEDEMA. Will give the patient a dose of H2/H1 receptor louie as well as corticosteroids, Benadryl and follow. The patient's airway fortunately is protected. 3. HYPERTENSIVE EMERGENCY. Will start the patient on a nitro drip for now and further management accordingly. Will discontinue CLARISSA INHIBITOR and list it as an ALLERGY. 4. ACUTE HYPERCAPNIC AND HYPOXEMIC RESPIRATORY FAILURE. The patient is currently intubated. Will repeat gas at 10:30 and adjust accordingly. 5. MIXED PATTERN ACIDOSIS. This will improve with ventilation as well as dialysis. 6. HYPERNATREMIA, MOST LIKELY DUE TO THE PATIENT'S VOLUME STATUS. Hopefully this will improve with dialysis. 7. HYPERKALEMIA. The patient's potassium has trended down nicely. Hopefully this will continue to improve. 8. ANEMIA OF CHRONIC DISEASE. The patient's hemoglobin overall is stable. 9. INFILTRATE PER CHEST X-RAY. Will cover the patient with antibiotic coverage and add anaerobes as concern that the patient may have aspirated during his seizure. DISPOSITION: THE PATIENT REMAINS A FULL CODE. Pending the patient's symptomatology and diagnostic findings, will re-evaluate as needed and follow up the patient's repeat labs. Time spent on this critical care visit, including assessment/plan, physical examination, attempted patient education and review of records, is 60 minutes. DICTATING PHYSICIAN: SATHYA GARCIA NP [id number] PHY#: [id number] ID: [id number] JOB#: [id number] ACCT: [id number] cc: >
[2017-08-22 10:25] LABS: ARTERIAL BLOOD BASE EXCESS 2.1 mmol/L; ARTERIAL BLOOD O2 SATURATION 84.9 % (94-98)
[2017-08-22] MEDS ORDERED: RACEPINEPHRINE HCL 2.25% NEB 0.5 ML AMPUL NEB ONE (11:00)
[2017-08-22] MEDS ORDERED: NORMAL SALINE 500 ML with ROCURONIUM BROMIDE 500 MG IV PRN ×2 (11:21)
--- NOTE | 2017-08-22 11:59 | OPERATIVE REPORT E ---
Operative Report NAME: PRATIBHA ALMAZAN : 1970 AGE: 47Y DATE OF SURGERY: 08/22/2017 ROOM: 608 PREOPERATIVE DIAGNOSES: 1. Poor veins for IV access. 2. Hypotension. POSTOPERATIVE DIAGNOSES: 1. Poor veins for IV access. 2. Hypotension. PROCEDURE: Placement of central line with ultrasound guidance. SURGEON: KAILA KRISHNAMURTHY M.D. ANESTHESIA: Local with IV sedation. INDICATION: A 47-year-old dialysis patient who did have hypotension and needed IV access and central line. Patient has been intubated. DESCRIPTION OF PROCEDURE: Left neck was then prepped and draped in the usual sterile fashion. The left internal jugular vein was then identified with an ultrasound. An attempt was done to cannulate the internal jugular vein, somehow unable to do so. Also, at this point, the other ultrasound machine is being asked to be used by Dr. Alvarado. Therefore, a new ultrasound machine was brought in. Again, with the use of an ultrasound, the left internal jugular vein was then reultrasound and the left internal jugular vein identified. It was then punctured and guidewire placed through the needle into the direction of the superior vena cava. The puncture site was then enlarged and triple-lumen catheter inserted through the guidewire a total distance of 17 cm. The catheter was subsequently anchored to the skin with 3-0 silk. All the 3 ports showed EC *------* saline. A Biopatch placed on the insertion site and a transparent dressing placed over the catheter. A chest x-ray will be obtained for placement and to rule out pneumothorax. DICTATING PHYSICIAN: KAILA KRISHNAMURTHY M.D. [id number] PHY#: [id number] ID: [id number] JOB#: [id number] ACCT: [id number] cc:KAILA KRISHNAMURTHY M.D. >
[2017-08-22] MEDS ORDERED: CALCIUM CARBONATE 500 MG TAB.CHEW NG SCH (12:00)
--- NOTE | 2017-08-22 12:15 | RADIOLOGY REPORT (SQ) ---
EXAM DESCRIPTION: CHEST SINGLE VIEW COMPLETED DATE/TIME: 08/22/2017 11:51 am REASON FOR STUDY: INTUBATION/LINE PLACEMENT COMPARISON: 08/21/2017 EXAM PARAMETERS: NUMBER OF VIEWS: One view. TECHNIQUE: Single frontal radiographic view of the chest acquired. RADIATION DOSE: NA LIMITATIONS: None. FINDINGS: LUNGS AND PLEURA: Bilateral pleural effusions retrocardiac opacification. MEDIASTINUM AND HILAR STRUCTURES: No masses. Contour normal. HEART AND VASCULAR STRUCTURES: Cardiomegaly without failure. BONES: No acute findings. HARDWARE: An endotracheal tube is present with the tip 4 cm above the nini. OTHER: No other significant finding. IMPRESSION: Cardiomegaly. Pleural effusions. Cannot exclude left lower lobe atelectasis versus con solidation. Endotracheal tube placement as described. TECHNICAL DOCUMENTATION: JOB ID: [id number] [employer]- All Rights Reserved
[2017-08-22] MEDS ORDERED: PHENYTOIN SODIUM IV ONE (12:30)
[2017-08-22] MEDS ORDERED: NORMAL SALINE IV ONE (12:30)
--- NOTE | 2017-08-22 12:39 | TRANSFER SUMMARY E ---
Transfer Summary NAME: PRATIBHA ALMAZAN : 1970 AGE: 47Y ADMITTED: 08/21/2017 TRANSFERRED: 08/22/2017 RECEIVING FACILITY: [facility]. RECEIVING PHYSICIAN: Kayden Cortez MD with Neurosurgery. CODE STATUS: FULL CODE. REASON FOR TRANSFER: Includes: 1. STATUS EPILEPTICUS; THE PATIENT HAS HAD NO PREVIOUS SEIZURE. 2. HIGH SUSPICION FOR ANGIOEDEMA. THE PATIENT WAS ON AN CLARISSA INHIBITOR. 3. HYPERTENSIVE URGENCY. 4. ACUTE HYPERCAPNIC AND HYPOXEMIC RESPIRATORY FAILURE; CURRENTLY INTUBATED. 5. MIXED PATTERN ACIDOSIS. 6. HYPERNATREMIA. 7. HYPERKALEMIA. 8. ANEMIA OF CHRONIC DISEASE. 9. SUSPECT ASPIRATION. CURRENT MEDICATIONS: Include: 1. Pepcid 20 mg IV q.12 h. 2. Keppra 1 g IV q.12 h.; this will be discontinued and the patient will be given a loaded dose of phenytoin 20 mg/kg. 3. Versed drip. 4. Rocuronium drip for imaging purposes. 5. Phenergan 12.5 mg per rectal q.6 h. p.r.n. 6. Nitroglycerin drip. 7. Coumadin 5 mg at bedtime which is currently on hold. 8. Accu-Chek q.6 h. with sliding scale coverage. 9. Solu-Medrol 125 mg IV q.6 h. 10. Benadryl 25 mg IV x1 dose now. DIAGNOSTICS: Lab values are as follows: Hematology obtained on 08/22/2017: WBC of 7.5, hemoglobin is 10.1, hematocrit is 31.6. Platelet count is 201,000. Coagulation obtained on 08/21/2017: PT is 13.2, INR is 2.96. ABG obtained on 08/22/2017 at 10:15 a.m., status post intubation would be pH of 7.26, PCO2 is 68.1, PO2 is 57.6, bicarb is 30.1. This is on 40% FIO2. Chemistry obtained on 08/22/2017: Sodium is 150, potassium 5.2, chloride is 104, carbon dioxide 21, BUN 75, creatinine is 14.68, glucose 98, calcium is 8.7, phosphorous 7.1, magnesium is 2.1, troponin is 0.179. Total bilirubin is 0.7, AST is 27, ALT is 28, alk phos 111, total protein is 8, albumin 4.2. Chest x-ray obtained on 08/21/2017, reveals cardiomegaly with bilateral pleural effusion with basilar atelectasis. Infiltrate noted of the left chest. EKG obtained on 08/21/2017, reveals sinus rhythm. PHYSICAL EXAMINATION: GENERAL: On examination, the patient is a 47-year-old male that is currently intubated and sedated. The patient also continues to have involuntary jerking motion. VITAL SIGNS: Current vitals include temperature of 97.5. Pulse 100, sinus rhythm. Respirations mechanically at 18. Blood pressure is currently 136/78, with an oxygen saturation of 98% on 40% FIO2. SKIN: Warm and dry. No rash. Not diaphoretic. HEENT: His pupils are reactive. Bilateral conjunctival edema is noted with periorbital edema. NECK: No evidence of JVP. CARDIOVASCULAR: Heart is tachycardic, regular. No rub. CHEST: Patient has rhonchorous breath sounds noted in both lung murcia; symmetrical, unlabored. ABDOMEN: Soft, nontender, nondistended. BACK: No evidence of sacral edema. EXTREMITIES: No clubbing, cyanosis, edema. PSYCHIATRIC: The patient is currently sedated and intubated. HISTORY OF PRESENT ILLNESS: The patient is a 47-year-old male with a past medical history of end-stage renal disease and hypertension. The patient presented to the emergency department with a chief complaint of facial swelling as well as muscle jerking. The patient was on our service from 08/16 to 08/17. At that time he received dialysis twice due to missing dialysis for a week. The patient presented again to the emergency department after not attending dialysis since he was discharged. The patient was alert and oriented during his presentation, though was found to drift off during discussion. The patient was also noted to have multiple jerking and was also found to be significantly hypertensive. The patient was found to have findings that were consistent of volume overload with electrolyte anomalies and was referred to the hospitalist for admission and management. HOSPITAL COURSE: Patient was admitted to [facility]. The patient's course deteriorated rapidly the morning of 08/22/2017. At that time, the patient went to dialysis and prior to starting his treatment had a grand mal seizure. The patient subsequently had lingual trauma and due to his anticoagulation, a significant amount of bleeding. Do suspect aspiration was associated with this event. The patient subsequently was intubated for airway protection although there has been no documented transient hypoxia but the patient appeared to be agonally breathing. Subsequently, the patient had been given 2 mg of Ativan during his initial event. The patient was started on a Versed drip and was noted to be postictal. The patient did have bowel incontinence with his event. The patient was transferred down to the ICU where he subsequently revealed a central line as well as arterial line. During the patient's event, he was found to be severely hypertensive with a systolic blood pressure of 230 and diastolic of 112. The patient was started on a nitro drip which he tolerated extremely well and his blood pressures came down nicely to the 130 systolic range. The patient, however, over the course of the past 2 hours has had continuous intermittent jerking motions and appears to be having partial or complete seizures. The case was discussed with [facility] Neurology and recommendations have been made to load the patient with Dilantin and the patient had already received a gram of Keppra, but will proceed with this. Have discussed this with the pharmacy as well. Additionally, in an effort to obtain head CT imaging, the patient had been unable to remain still long enough for the procedure. Therefore, it was the recommendation of neurology to paralyze the patient in an effort to get images. I have discussed this with nursing to ensure the patient would be on a set rate during this time to ensure no transient hypoxia. This does need to be correlated with respiratory therapy. Pending these, will send CT images to [facility]. I called and discussed the case with Neurosurgery, Dr. Cortez, who has graciously agreed to accept the patient to the ICU service there. TRANSFER PLANNIN. The patient will be received in services of Neurosurgery at [facility]. At this time, I would like to thank Neurology, Neurosurgery, and the hospital for graciously participating in the care of this patient. Time spent on this transfer including assessment, plan, physical examination, attempt to contact the patient's family, multispecialty collaboration, and review of records is 90 minutes. DICTATING PHYSICIAN: SATHYA GARCIA NP [id number] PHY#: [id number] ID: [id number] JOB#: [id number] ACCT: [id number] cc:SATHYA GARCIA NP > AUDREY
[2017-08-22] MEDS ORDERED: DOPAMINE HCL/DEXTROSE 5%-WATER 800 MG/250 ML RTUINJ IV PRN (12:55)
[2017-08-22] MEDS ORDERED: DEXTROSE 5%-WATER 250 ML with PHENYLEPHRINE HCL 40 MG IV PRN ×2 (13:00)
[2017-08-22] MEDS ORDERED: PHENYLEPHRINE HCL INJ/PF 10 MG/1 ML SDV ONE (13:05)
[2017-08-22] MEDS ORDERED: SUCCINYLCHOLINE CHLORIDE INJ 200 MG/10 ML VIAL ONE (13:08)
[2017-08-22 13:19] LABS: ARTERIAL BLOOD BASE EXCESS 3.3 mmol/L; ARTERIAL BLOOD O2 SATURATION 86.1 % (94-98)
[2017-08-22 13:38] VITALS: BP 94/60
[2017-08-22] MEDS ORDERED: PHENYTOIN SODIUM INJ/PF 100 MG/2 ML SDV IV SCH (18:00)
[2017-08-22] MEDS ORDERED: METHYLPREDNISOLONE INJ 125 MG/2 ML SDV IV SCH (21:00)
[2017-08-22] MEDS ORDERED: LEVETIRACETAM 1000 MG/NACL-ISO 1,000 MG/100 ML RTUPB IV SCH (22:00)
[2017-08-22] MEDS ORDERED: FAMOTIDINE INJ/PF 20 MG/2 ML SDV IV SCH (22:00)
[2017-08-22] MEDS ORDERED: WARFARIN SODIUM 5 MG TABLET NG SCH (22:00)
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
== END 2017-08-22 14:00 | disposition short-term general hospital (02) | DRG 304 ==
LOC: ER 13:07 → EH 20:48 → 3N 08-22 00:22 → ICU 08-22 08:38
PROVIDERS: ADMIT Family Medicine; ATTEND Family Medicine
PROC: 5A09357 Assistance with Respiratory Ventilation, Less than 24 Consecutive Hours, Continuous Positive Airway Pressure (ICD-10-PCS; 2017-08-21)
PROC: 02HV33Z Insertion of Infusion Device into Superior Vena Cava, Percutaneous Approach (ICD-10-PCS; principal; 2017-08-22)
PROC: B548ZZA Ultrasonography of Superior Vena Cava, Guidance (ICD-10-PCS; 2017-08-22)
PROC: 3E0F73Z Introduction of Anti-inflammatory into Respiratory Tract, Via Natural or Artificial Opening (ICD-10-PCS; 2017-08-22)
PROC: 5A1935Z Respiratory Ventilation, Less than 24 Consecutive Hours (ICD-10-PCS; 2017-08-22)
PROC: 0BH17EZ Insertion of Endotracheal Airway into Trachea, Via Natural or Artificial Opening (ICD-10-PCS; 2017-08-22)
DX: I16.1 Hypertensive emergency (principal); J96.01 Acute respiratory failure with hypoxia; J96.02 Acute respiratory failure with hypercapnia; N18.6 End stage renal disease; E87.4 Mixed disorder of acid-base balance; E87.0 Hyperosmolality and hypernatremia; G40.901 Epilepsy, unspecified, not intractable, with status epilepticus; I13.2 Hypertensive heart and chronic kidney disease with heart failure and with stage 5 chronic kidney disease, or end stage renal disease; T78.3XXA Angioneurotic edema, initial encounter; E87.5 Hyperkalemia; D63.1 Anemia in chronic kidney disease; E11.22 Type 2 diabetes mellitus with diabetic chronic kidney disease; Z87.442 Personal history of urinary calculi; T45.515A Adverse effect of anticoagulants, initial encounter; S81.809S Unspecified open wound, unspecified lower leg, sequela; W34.00XS Accidental discharge from unspecified firearms or gun, sequela; Z79.01 Long term (current) use of anticoagulants; Z91.15 Patient's noncompliance with renal dialysis; Z79.899 Other long term (current) drug therapy; Z86.718 Personal history of other venous thrombosis and embolism; Z99.2 Dependence on renal dialysis; Z82.49 Family history of ischemic heart disease and other diseases of the circulatory system; Z82.3 Family history of stroke; Z83.6 Family history of other diseases of the respiratory system; Z84.1 Family history of disorders of kidney and ureter
CPT/HCPCS: 31500; 36415; 36600; 71010; 80048; 80053; 82803; 82962; 83735; 84100; 84484; 85025; 85027; 85610; 87070; 87205; 93005; 93010; 94002; 94660; 99285; C1751; J0330; J0360; J0610; J1165; J1200; J1644; J1815; J1940; J1953; J2060; J2250; J2370; J2704; J2930; J3490; J7040; J7050; S0028

== ENCOUNTER 2018-08-20 07:07 | Day surgery (SDC) | payer MEDICARE, MEDICAID ==
[~2018-08-20 07:07] MED LIST: DIAZEPAM 5 MG TABLET PO PRN; OXYCODONE-ACETAMINOPHEN 5-325 MG TABLET PO PRN
[2018-08-20] MEDS ORDERED: LIDOCAINE 0.5% INJ-PF (5 MG/ML) 50 ML SDV ONE (07:36)
[2018-08-20] MEDS ORDERED: MIDAZOLAM 2 MG/2 ML INJ ONE (07:39)
[2018-08-20] MEDS ORDERED: HEPARIN SOD (PORCINE) 5,000 UNIT/ML 1 ML SYRINGE ONE (07:39)
[2018-08-20] MEDS ORDERED: FENTANYL CITRATE INJ/PF 100 MCG/2 ML AMPUL ONE (07:39)
[2018-08-20] MEDS ORDERED: OXYCODONE-ACETAMINOPHEN 5-325 MG TABLET ONE (07:58)
[2018-08-20] MEDS ORDERED: DIAZEPAM 5 MG TABLET ONE (07:58)
[2018-08-20] MEDS ORDERED: LISINOPRIL 5 MG TABLET PO ONE (08:00)
[2018-08-20] MEDS ORDERED: AMLODIPINE BESYLATE 5 MG TABLET PO ONE (08:00)
[2018-08-20 08:13] LABS: HEMATOCRIT 25.4 % (37.9-51.0); HEMOGLOBIN 8.2 g/dL (13.5-17.0); MEAN CORPUSCULAR HEMOGLOBIN 27.1 pg (27.0-33.4); MEAN CORPUSCULAR HGB CONC 32.3 g/dL (32.0-36.0); MEAN CORPUSCULAR VOLUME 84 fl (80-97); PLATELET COUNT 170 10^3/uL (150-450); RED BLOOD COUNT 3.04 10^6/uL (4.35-5.55); RED CELL DISTRIBUTION WIDTH 15.1 % (11.5-14.0); WHITE BLOOD COUNT 4.6 10^3/uL (4.0-10.5)
[2018-08-20 08:23] LABS: INTERNATIONAL RATION (INR) 0.98; PROTHROMBIN TIME 13.5 SEC (11.4-15.4)
[2018-08-20 08:36] LABS: ANION GAP 12 (5-19); BLOOD UREA NITROGEN 31 mg/dL (7-20); CALCIUM 8.6 mg/dL (8.4-10.2); CARBON DIOXIDE 30 mmol/L (22-30); CHLORIDE 101 mmol/L (98-107); GLUCOSE 79 mg/dL (75-110); POTASSIUM 4.8 mmol/L (3.6-5.0); SODIUM 143.1 mmol/L (137-145)
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
--- NOTE | 2018-08-20 10:42 | Discharge Summary ---
Discharge Summary (SDC) - Discharge Final Diagnosis: #1 malfunctioning AV fistula, right arm transposed basilic. 2. End-stage renal disease on hemodialysis. 3. Diabetes mellitus type 2. 4. Hypertension. Date of Surgery: 08/20/18 Discharge Date: 08/20/18 Condition: Fair Treatment or Instructions: Discharge home [after recovery per ASU criteria]. Diet , [renal],as tolerated, when fully awake advance as tolerated. Activities within moderation encouraged. Follow up in my office by appointment in about [1 month. Call for appointment. Leave wounds [covered], [keep clean and dry, until office visit in 1 week]. Meds per med rec. May shower [in 48 hrs], [try to keep operated area as dry as possible]. Referrals: BRITTNY TIJERINA PA-C [Primary Care Provider] - Discharge Diet: Other (Comments) - Diabetic, renal. Respiratory Treatments at Home: Deep Breathing/Coughing Discharge Activity: Activity As Tolerated Report the Following to Your Physician Immediately: Shortness of Breath
[2018-08-20 11:49] VITALS: BP 189/98
--- NOTE | 2018-08-22 14:10 | Operative Report ---
Operative Report DATE OF SURGERY: 08/20/18 PREOPERATIVE DIAGNOSIS: #1 malfunctioning AV fistula, right arm transposed basilic. 2. End-stage renal disease on hemodialysis. 3. Diabetes mellitus type 2. 4. Hypertension. POSTOPERATIVE DIAGNOSIS: #1 [address] fistula, right arm transposed basilic. 2. End-stage renal disease on hemodialysis. 3. Diabetes mellitus type 2. 4. Hypertension. OPERATION: 1. Ultrasound-guided access into arteriovenous fistula. 2. Angioplasty. Central. 3. Drug-eluting balloon angioplasty. Central. 4. Angiogram and interpretation. SURGEON: AMANDA SAENZ FILM HISTORIAN: None. ANESTHESIA: Moderate Sedation TISSUE REMOVED OR ALTERED: Not applicable. COMPLICATIONS: None. ESTIMATED BLOOD LOSS: 2 mL. INTRAOPERATIVE FINDINGS: Of a large well founded fistula in the left arm easily 1.5 cm across. Quite deep however easily centimeter beneath the skin due to massive subcutaneous edema. Much fluid seen fat globules in the subcutaneous tissues. Central stenosis in his right subclavian vein and a right innominate noted and possibly in the superior vena cava. Estimated to be 70% with respect to the adjacent lumen. Angioplasty with a 10 mm angioplasty balloon was sufficient to improve the fistula and eliminate the stenosis. A rim peripherally is noted since the existing stents are 12 or possibly 14 mm. At least 2 and possibly 3 stents probably bare-metal are noted. Some challenge getting into the fistula due to firmness, quite robust support was needed in order to get the introducer into the venous lumen. Centrally severe stenoses noted throughout the stents in the right subclavian and innominate, superior vena cava. Stenting, prior to be SVC exists for about 12 cm. Two possibly 3 stents are noted. Angioplasty done with elimination of the stenosis in the stents up to 10 cm. The stents themselves may be as large as 12 or 14 mm. In recognition of the critical nature of the stent placement a drug-eluting balloon was used in the hope of reducing intimal fibroplasia. PROCEDURE: PROCEDURE: After verifying the procedure and having obtained informed consent, the patient's right arm was prepared with Chlorhexidine and draped out with sterile linen. Local anesthesia infiltrated. Percutaneous access into the fistula ,[ antegrade], obtained about [6 cm] from the arteriovenous anastomosis using a micro puncture needle followed by micro puncture wire and then a micro puncture catheter. Ultrasound guidance was used in order to safely access his fistula which is quite deep in the segment approached. The findings with regard subcutaneous fluid were noted at this point. Angiogram demonstrated the aforementioned findings. Angioplasty was elected. A 0.035 [place] wire was inserted, and over this, a 7 Maori short introducer was placed, this was followed by an 8 mm angioplasty balloon . Angioplasty was Done at the culprit area which was through the stents in the right subclavian innominate and superior vena cava. The stenting is quite extensive probably as much as 12 cm. This required several inflations of the 4 mm long balloon.. Inflating up to 14 atmospheres for 1-2 minutes at the time.]. Completion angiogram demonstrated [satisfactory result]. A 10 mm drug-eluting balloon was now inserted and inflated over the most severely affected segment which was subclavian and the curve into the right innominate. The waist was noted to be almost eliminated. This was inflated for a full 3 minutes up to 12 khoi. The instrumentation was now withdrawn over hand pressure for 10 minutes. Dressings applied, procedure concluded. DICTATING PHYSICIAN: AMANDA CRAWFORD M.D. cc: AMANDA CRAWFORD M.D. ([id number]) >>
== END 2018-08-20 11:30 | disposition home or self-care (01) ==
LOC: CCL 07:07
PROVIDERS: ATTEND Surgery
DX: T82.858A Stenosis of other vascular prosthetic devices, implants and grafts, initial encounter (principal); Y83.2 Surgical operation with anastomosis, bypass or graft as the cause of abnormal reaction of the patient, or of later complication, without mention of misadventure at the time of the procedure; I13.2 Hypertensive heart and chronic kidney disease with heart failure and with stage 5 chronic kidney disease, or end stage renal disease; E11.22 Type 2 diabetes mellitus with diabetic chronic kidney disease; N18.6 End stage renal disease; Z99.2 Dependence on renal dialysis; Z79.899 Other long term (current) drug therapy; I50.9 Heart failure, unspecified; Z86.718 Personal history of other venous thrombosis and embolism; Z01.818 Encounter for other preprocedural examination
CPT/HCPCS: 36415; 85027; 85610; 85730; 80048; 36902; 76937; C1725 ×2; C1752; C1887; C1894; C1769 ×2; J2250; J1644 ×2; A9270 ×4; J3010; J3490

== ENCOUNTER 2018-12-17 09:22 | Day surgery (SDC) | payer MEDICARE, MEDICAID ==
[~2018-12-17 09:22] MED LIST changes: +CEFAZOLIN 1 GM/D5W RTU 1 GM/50 ML RTUPB IV ONE; -DIAZEPAM 5 MG TABLET PO PRN; +HEPARIN IV ONE; -OXYCODONE-ACETAMINOPHEN 5-325 MG TABLET PO PRN; +SODIUM CHLORIDE IV ONE
[2018-12-17] MEDS ORDERED: DIAZEPAM 5 MG TABLET ONE (09:57)
[2018-12-17] MEDS ORDERED: OXYCODONE-ACETAMINOPHEN 5-325 MG TABLET ONE ×2 (09:57→16:02)
[2018-12-17 09:58] LABS: HEMATOCRIT 30.7 % (37.9-51.0); HEMOGLOBIN 9.7 g/dL (13.5-17.0); MEAN CORPUSCULAR HEMOGLOBIN 26.2 pg (27.0-33.4); MEAN CORPUSCULAR HGB CONC 31.7 g/dL (32.0-36.0); MEAN CORPUSCULAR VOLUME 82 fl (80-97); PLATELET COUNT 184 10^3/uL (150-450); RED BLOOD COUNT 3.73 10^6/uL (4.35-5.55); RED CELL DISTRIBUTION WIDTH 15.1 % (11.5-14.0); WHITE BLOOD COUNT 6.1 10^3/uL (4.0-10.5)
[2018-12-17 10:08] LABS: ANION GAP 15 (5-19); BLOOD UREA NITROGEN 51 mg/dL (7-20); CARBON DIOXIDE 25 mmol/L (22-30); CHLORIDE 99 mmol/L (98-107); GLUCOSE 74 mg/dL (75-110); POTASSIUM 5.2 mmol/L (3.6-5.0); SODIUM 138.9 mmol/L (137-145)
--- NOTE | 2018-12-17 10:24 | RADIOLOGY REPORT (SQ) ---
EXAM DESCRIPTION: CHEST SINGLE VIEW COMPLETED DATE/TIME: 12/17/2018 10:08 am REASON FOR STUDY: PREOP COMPARISON: 08/17/2017 NUMBER OF VIEWS: One view. TECHNIQUE: Single frontal radiographic image of the chest acquired. LIMITATIONS: None. FINDINGS: LUNGS AND PLEURA: Chronic volume loss in the left lung. Chronic blunting of the costophre geremias angles. No infiltrate. MEDIASTINUM AND HEART: Stable heart size and mediastinal structures. BONY STRUCTURES: No acute findings. HARDWARE: None. OTHER: Right brachycephalic vascular stent. IMPRESSION: Stable, chronic changes. TECHNICAL DOCUMENTATION: JOB ID: [id number] Reading location - IP/workstation name: [email or web address]
[2018-12-17] MEDS ORDERED: HEPARIN SODIUM,PORCINE/NS/PF 2,000 UNIT/1,000 ML RTUINJ IV ONE (13:07)
[2018-12-17] MEDS ORDERED: LIDOCAINE 0.5% INJ-PF (5 MG/ML) 50 ML SDV ONE (13:07)
[2018-12-17] MEDS ORDERED: BACITRACIN INJ 50,000 UNIT VIAL ONE (13:13)
[2018-12-17] MEDS ORDERED: FENTANYL CITRATE INJ/PF 100 MCG/2 ML AMPUL ONE (13:18)
[2018-12-17] MEDS ORDERED: HEPARIN SOD (PORCINE) 5,000 UNIT/ML 1 ML SYRINGE ONE (13:18)
[2018-12-17] MEDS ORDERED: MIDAZOLAM 2 MG/2 ML INJ ONE (13:18)
[2018-12-17] MEDS ORDERED: CLONIDINE HCL 0.1 MG TABLET ONE (13:49)
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
--- NOTE | 2018-12-17 16:16 | Discharge Summary ---
Discharge Summary (SDC) - Discharge Final Diagnosis: #1 malfunctioning right arm transposed basilic vein fistula. 2. Fabry disease. 3. End-stage renal disease on hemodialysis. 4. Hypertension. Date of Surgery: 12/17/18 Discharge Date: 12/17/18 Condition: Fair Treatment or Instructions: Discharge home [after recovery per ASU criteria]. Diet , [renal],as tolerated, when fully awake advance as tolerated. Activities within moderation encouraged. Follow up in my office by appointment in about [1 week]. Call for appointment. Leave wounds [covered], [keep clean and dry, until office visit in 1 week]. Hold of on school/work [until evaluation in office]. Meds per med rec. Percocet. May shower [in 48 hrs], [try to keep operated area as dry as possible]. Prescriptions: Oxycodone HCl/Acetaminophen [Percocet 5-325 mg Tablet] 1 tab PO ASDIR PRN #10 tab PRN Reason: Referrals: BRITTNY TIJERINA PA-C [Primary Care Provider] - Discharge Diet: Other (Comments) - Renal. Respiratory Treatments at Home: Deep Breathing/Coughing Discharge Activity: Activity As Tolerated Report the Following to Your Physician Immediately: Shortness of Breath, Unusual Bleeding
--- NOTE | 2018-12-17 16:28 | Operative Report ---
Operative Report DATE OF SURGERY: 12/17/18 PREOPERATIVE DIAGNOSIS: #1 malfunctioning right arm transposed basilic vein fis kassie. 2. Fabry disease. 3. End-stage renal disease on hemodialysis. 4. Hypertension. POSTOPERATIVE DIAGNOSIS: #1 malfunctioning right arm transposed basilic vein fistula. 2. Fabry disease. 3. End-stage renal disease on hemodialysis. 4. Hypertension. OPERATION: 1. Ultrasound evaluation. 2. Insertion of left-sided Port-A-Cath via real-time ultrasound-guided access in the left internal jugular vein. 3. Angiogram and interpretation. SURGEON: AMANDA SAENZ ANIME DESIGNER: None. ANESTHESIA: Moderate Sedation TISSUE REMOVED OR ALTERED: None. COMPLICATIONS: Limitations in positioning of catheter due to the presence of large stents in the right subclavian and in the superior vena cava. These effectively assisted the left innominate vein. Within these limitations the catheter seemed effective with easy egress of blood and ingress of heparinized solution. ESTIMATED BLOOD LOSS: 5 mL. INTRAOPERATIVE FINDINGS: Of a satisfactory left internal jugular vein estimated to be 1.5 cm in diameter. The Glidewire was successfully positioned down into the superior vena cava. It proved impossible to get the catheter beyond the superior vena cava stent due to jailing. Final angiogram demonstrated smooth flow of contrast through the catheter, superior vena cava and right atrium. Final chest x-ray demonstrates expected hardware with no untoward problems. PROCEDURE: After obtaining informed consent, the patient was taken to the Manager Clinical Informatics and positioned supine. The left neck and chest were prepared with chlorhexidine and draped out with sterile linen. After the " universal timeout", in which it was verified that the patient continued to receive antibiotic, the procedure commenced. A steriley sheathed ultrasound probe was used to evaluate the left internal jugular vein. Local anesthesia was infiltrated adjacent to the probe. Access into the [right] internal jugular vein was obtained using a micropuncture needle, followed by micropuncture wire and then a micropuncture catheter. This was followed by introduction of a 0.035 glidewire the tip of which was placed down into the inferior vena cava . The port sites was marked , locally anesthetized and incision made. Dissection now proceeded to the deep subcutaneous subcutaneous tissues so that a pocket for the port was made. Meticulous hemostasis was secured and the catheter was tunneled between the 2 incisions. Proximally, the catheter was now positioned using a peel-away sheath. Distally the catheter was tailored to an appropriate length and then mated to the port using the contained fixating device. The port was now placed in the pocket and the catheter optimally positioned. The port was accessed with a Lynch needle and an angiogram done under digital subtraction. The findings as dictated. With adequate and satisfactory positioning, both lumens of the chamber were irrigated with heparinized solution. The wounds were now closed using interru pted 3-0 PDS to the subcutaneous tissues and a continuous subcuticular suture of 4-0 Monocryl to the skin. These are reinforced with Steri-Strips over benzoin and then dressings applied. Time: 1.9 minute. Dose: 24.2 m Gy Contrast: 5 Mls. Isovue 300. Copies of the dictated operative report for Dr. Amanda Alvarado MD.
--- NOTE | 2018-12-17 16:41 | Operative Report ---
Operative Report DATE OF SURGERY: 12/17/18 PREOPERATIVE DIAGNOSIS: #1 malfunctioning right arm transposed basilic vein fis kassie. 2. Fabry disease. 3. End-stage renal disease on hemodialysis. 4. Hypertension. POSTOPERATIVE DIAGNOSIS: #1 malfunctioning right arm transposed basilic vein fistula. 2. Fabry disease. 3. End-stage renal disease on hemodialysis. 4. Hypertension. OPERATION: 1. Ultrasound guided access into right arm arteriovenous fistula. 2. Angioplasty of right subclavian and superior vena cava in stent stenosis. 3. Angiogram and interpretation. SURGEON: AMANDA SAENZ FACULTY I ON CALL MEDICAL ASSISTANT: None. ANESTHESIA: Moderate Sedation TISSUE REMOVED OR ALTERED: None. COMPLICATIONS: None. ESTIMATED BLOOD LOSS: 5 mL. INTRAOPERATIVE FINDINGS: Of a large right transposed basilic vein fistula. Somewhat deeply placed due to massive arm edema. Angiogram demonstrated several areas of stenosis in the right subclavian and superior vena cava stents. Discomfort distance of about 10 cm. Collaterals were noted immediately proximal indicating the hemodynamic significance of the stent stenosis, estimated to be 80% of the adjacent lumen. Post dilatation with a 10 mm angioplasty balloon there was marked improvement in the stent with decrease in the collaterals. In this patient with a haley fistula interval dilatation is his best I would suggest at no more than 2 to 3 months interval. Aiming towards at least a 12 mm angioplasty in the future. Final chest x-ray demonstrates expected hardware with no untoward problems. PROCEDURE: PROCEDURE: After verifying the procedure and having obtained informed consent, the patient's right arm was prepared with Chlorhexidine and draped out with sterile linen. Local anesthesia infiltrated. Percutaneous access into the fistula ,[ antegrade], obtained about [2 cm] from the arteriovenous anastomosis using a micro puncture needle followed by micro puncture wire and then a micro puncture catheter. This was guided by ultrasound because of the depth of the fistula. Angiogram demonstrated the aforementioned findings. Angioplasty was elected. A 0.035 Friendly wire was inserted, and over this, a 7 Yemeni short introducer was placed, this was followed by a [9 - mm] angioplasty balloon . Angioplasty was Done in the culprit areas. Inflating using a 3 mils syringe for 2 minutes at a time.]. Completion angiogram demonstrated an acceptable results. The instrumentation was now withdrawn over hand pressure for 10 minutes. Dressings applied. Procedure concluded Exposure time: 5.2 minutes. Radiation: 75.29 mGy. Contrast: 25 mL of Omnipaque 300. DICTATING PHYSICIAN: AMANDA CRAWFORD M.D. cc: AMANDA CRAWFORD M.D. ([id number]) >>
--- NOTE | 2018-12-17 16:52 | RADIOLOGY REPORT (SQ) ---
EXAM DESCRIPTION: PORTACATH INSERTION; FISTULAGRAM W/PLASTY COMPLETED DATE/TIME: 12/17/2018 3:59 pm REASON FOR STUDY: E75.21 FABRY DISEASE; T82.858A T82.858A STENOSIS OF OTHER VASCULAR PROSTH DEV/GRF T, INIT E75.21 FABRY (-DANIELA) DISEASE COMPARISON: 08/20/2018 FLUORO TIME: 1.9 minutes 68 series of images saved to PACS. LIMITATIONS: None. PROCEDURE: Intra procedural imaging and fluoro during central venous catheter placement by Dr. Rene carrillo in the specialist employee labor relations. Please see the operative report for further details. IMPRESSION: Intra procedural imaging and fluoro COMMENT: Quality ID 145: Final reports for procedures using fluoroscopy that document radiation exp osure indices, or exposure time and number of fluorographic images (if radiation exposure indices are not available) TECHNICAL DOCUMENTATION: JOB ID: [id number] [employer]- All Rights Reserved rev-12/26 Reading location - IP/workstation name: [email or web address]
--- NOTE | 2018-12-17 16:52 | RADIOLOGY REPORT (SQ) ---
EXAM DESCRIPTION: PORTACATH INSERTION; FISTULAGRAM W/PLASTY COMPLETED DATE/TIME: 12/17/2018 3:59 pm REASON FOR STUDY: E75.21 FABRY DISEASE; T82.858A T82.858A STENOSIS OF OTHER VASCULAR PROSTH DEV/GRF T, INIT E75.21 FABRY (-DANIELA) DISEASE COMPARISON: 08/20/2018 FLUORO TIME: 1.9 minutes 68 series of images saved to PACS. LIMITATIONS: None. PROCEDURE: Intra procedural imaging and fluoro during central venous catheter placement by Dr. Rene carrillo in the laborer vegetable farm. Please see the operative report for further details. IMPRESSION: Intra procedural imaging and fluoro COMMENT: Quality ID 145: Final reports for procedures using fluoroscopy that document radiation exp osure indices, or exposure time and number of fluorographic images (if radiation exposure indices are not available) TECHNICAL DOCUMENTATION: JOB ID: [id number] [employer]- All Rights Reserved rev-12/26 Reading location - IP/workstation name: [email or web address]
[2018-12-17] MEDS ORDERED: OXYCODONE-ACETAMINOPHEN 5-325 MG TABLET PO ONE (17:00)
[2018-12-17 17:25] VITALS: BP 189/105
== END 2018-12-17 17:15 | disposition home or self-care (01) ==
LOC: CCL 09:22
PROVIDERS: ATTEND Surgery
DX: T82.858A Stenosis of other vascular prosthetic devices, implants and grafts, initial encounter (principal); Y83.2 Surgical operation with anastomosis, bypass or graft as the cause of abnormal reaction of the patient, or of later complication, without mention of misadventure at the time of the procedure; I13.2 Hypertensive heart and chronic kidney disease with heart failure and with stage 5 chronic kidney disease, or end stage renal disease; I50.9 Heart failure, unspecified; E11.22 Type 2 diabetes mellitus with diabetic chronic kidney disease; N18.6 End stage renal disease; Z99.2 Dependence on renal dialysis; E75.21 Fabry (-Anderson) disease; Z79.899 Other long term (current) drug therapy; Z86.718 Personal history of other venous thrombosis and embolism
CPT/HCPCS: 36415; 85027; 80048; 36902; 36561; 76937; 77001; 71045; C1725; Q9967; C1769; J2250; J3490 ×2; J1644 ×2; J0690; A9270 ×3; J3010

== ENCOUNTER 2019-08-11 07:45 | Emergency (ER) | payer MEDICARE, MEDICAID ==
[2019-08-11 08:14] LABS: ABSOLUTE EOSINOPHILS # (AUTO) 0.2 10^3/uL (0.0-0.6); ABSOLUTE LYMPHOCYTES (AUTO) 1.3 10^3/uL (0.5-4.7); ABSOLUTE MONOCYTES (AUTO) 0.5 10^3/uL (0.1-1.4); ABSOLUTE NEUT (AUTO) 2.9 10^3/uL (1.7-8.2); BASOPHILS % (AUTO) 0.9 % (0-2); HEMATOCRIT 26.8 % (37.9-51.0); HEMOGLOBIN 8.6 g/dL (13.5-17.0); LYMPHOCYTES % (AUTO) 26.2 % (13-45); MEAN CORPUSCULAR HGB CONC 32.2 g/dL (32.0-36.0); MEAN CORPUSCULAR VOLUME 84 fl (80-97); MONOCYTES % (AUTO) 9.6 % (3-13); PLATELET COUNT 174 10^3/uL (150-450); RED CELL DISTRIBUTION WIDTH 15.1 % (11.5-14.0); SEGMENTED NEUTROPHILS % (AUTO) 59.3 % (42-78); TOTAL CELLS COUNTED % (AUTO) 100 %; WHITE BLOOD COUNT 4.9 10^3/uL (4.0-10.5)
[2019-08-11] MEDS ORDERED: LIDOCAINE 1% INJ (10 MG/ML) 10 ML MDV INJ ONE (08:26)
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
[2019-08-11 08:51] LABS: CREATINE KINASE MB 3.1 ng/mL (<4.55)
[2019-08-11 08:59] LABS: ANISOCYTOSIS SLIGHT; PLATELET COMMENT ADEQUATE; TARGET CELLS 1+
--- NOTE | 2019-08-11 09:03 | RADIOLOGY REPORT (SQ) ---
EXAM DESCRIPTION: CHEST SINGLE VIEW COMPLETED DATE/TIME: 08/11/2019 8:49 am REASON FOR STUDY: sob COMPARISON: 08/17/2017, 08/22/2017, 12/17/2018 chest films EXAM PARAMETERS: NUMBER OF VIEWS: One view. TECHNIQUE: Single frontal radiographic view of the chest acquired. RADIATION DOSE: NA LIMITATIONS: Soft tissue shadowing over the right lateral chest FINDINGS: LUNGS AND PLEURA: Blunting right lateral costophrenic sulcus likely due to chronic pleural thickening/ trace pleural fluid. No gross left pleural effusion. No focal infiltrates. No pneumothorax. MEDIASTINUM AND HILAR STRUCTURES: Right-sided subclavian vascular stents HEART AND VASCULAR STRUCTURES: Marked cardiomegaly BONES: No acute findings. HARDWARE: Left-sided permanent central line tip in the upper most superior vena cava. Left subclavia n vascular stents are present OTHER: No other significant finding. IMPRESSION: No acute findings. Stable marked cardiomegaly Chronic blunting right lateral costophrenic sulcus, incompletely evaluated on today's portable films. Probably chronic pleural fluid/ pleural thickening TECHNICAL DOCUMENTATION: JOB ID: [id number] [employer]- All Rights Reserved Reading location - IP/workstation name: [email or web address]
[2019-08-11 09:13] LABS: TROPONIN I 0.113 ng/mL
[2019-08-11 09:19] LABS: ALBUMIN 3.9 g/dL (3.5-5.0); ALKALINE PHOSPHATASE 92 U/L (38-126); ANION GAP 14 (5-19); ASPARTATE AMINO TRANSFERASE 29 U/L (17-59); BILIRUBIN,DIRECT 0.5 mg/dL (0.0-0.4); BILIRUBIN,TOTAL 0.6 mg/dL (0.2-1.3); BLOOD UREA NITROGEN 61 mg/dL (7-20); CARBON DIOXIDE 26 mmol/L (22-30); CHLORIDE 102 mmol/L (98-107); CREATINE KINASE 69 U/L (55-170); GLUCOSE 81 mg/dL (75-110); POTASSIUM 5.1 mmol/L (3.6-5.0); TOTAL PROTEIN 7.6 g/dL (6.3-8.2)
[2019-08-11] MEDS ORDERED: SODIUM POLYSTYRENE SULFONATE 15 GM/60 ML PO ONE (10:56)
[2019-08-11 12:35] VITALS: BP 176/88
--- NOTE | 2019-08-11 15:07 | EKG REPORT ---
SEVERITY:- ABNORMAL ECG - SINUS RHYTHM LVH WITH IVCD AND SECONDARY REPOL ABNRM : Confirmed by: Anna Trevino MD 11-Aug-2019 15:07:06
== END 2019-08-11 12:39 | disposition home or self-care (01) ==
LOC: ER 07:45
DX: I13.2 Hypertensive heart and chronic kidney disease with heart failure and with stage 5 chronic kidney disease, or end stage renal disease (principal); E11.22 Type 2 diabetes mellitus with diabetic chronic kidney disease; N18.6 End stage renal disease; I50.9 Heart failure, unspecified; Z91.15 Patient's noncompliance with renal dialysis; Z99.2 Dependence on renal dialysis; R06.02 Shortness of breath; R60.0 Localized edema
CPT/HCPCS: 93005; 36591; 99285; 36415; 82553; 82550; 85025; 80053; 84484; 71045; 93010; A9270; J1642

== ENCOUNTER 2019-08-12 10:42 | Emergency (ER) | payer MEDICARE, MEDICAID ==
[2019-08-12 11:34] LABS: ABSOLUTE EOSINOPHILS # (AUTO) 0.2 10^3/uL (0.0-0.6); ABSOLUTE MONOCYTES (AUTO) 0.4 10^3/uL (0.1-1.4); ABSOLUTE NEUT (AUTO) 3.9 10^3/uL (1.7-8.2); BASOPHILS % (AUTO) 0.8 % (0-2); HEMATOCRIT 27.2 % (37.9-51.0); HEMOGLOBIN 8.8 g/dL (13.5-17.0); LYMPHOCYTES % (AUTO) 19.1 % (13-45); MEAN CORPUSCULAR HEMOGLOBIN 27.1 pg (27.0-33.4); MEAN CORPUSCULAR HGB CONC 32.4 g/dL (32.0-36.0); MEAN CORPUSCULAR VOLUME 84 fl (80-97); MONOCYTES % (AUTO) 6.5 % (3-13); PLATELET COUNT 165 10^3/uL (150-450); RED BLOOD COUNT 3.25 10^6/uL (4.35-5.55); RED CELL DISTRIBUTION WIDTH 15.3 % (11.5-14.0); SEGMENTED NEUTROPHILS % (AUTO) 70.6 % (42-78); TOTAL CELLS COUNTED % (AUTO) 100 %; WHITE BLOOD COUNT 5.5 10^3/uL (4.0-10.5)
[2019-08-12 11:44] LABS: ALKALINE PHOSPHATASE 95 U/L (38-126); ASPARTATE AMINO TRANSFERASE 30 U/L (17-59); BILIRUBIN,DIRECT 0.4 mg/dL (0.0-0.4); BILIRUBIN,TOTAL 0.6 mg/dL (0.2-1.3); BLOOD UREA NITROGEN 72 mg/dL (7-20); CALCIUM 9.2 mg/dL (8.4-10.2); CHLORIDE 102 mmol/L (98-107); GLUCOSE 91 mg/dL (75-110); POTASSIUM 5.3 mmol/L (3.6-5.0); TOTAL PROTEIN 7.6 g/dL (6.3-8.2)
[2019-08-12 11:49] LABS: ANION GAP 17 (5-19); CARBON DIOXIDE 27 mmol/L (22-30)
--- NOTE | 2019-08-12 12:08 | RADIOLOGY REPORT (SQ) ---
EXAM DESCRIPTION: CHEST SINGLE VIEW COMPLETED DATE/TIME: 08/12/2019 11:45 am REASON FOR STUDY: SOB COMPARISON: 08/11/2019 NUMBER OF VIEWS: One view. TECHNIQUE: Single frontal radiographic image of the chest acquired. LIMITATIONS: None. FINDINGS: LUNGS AND PLEURA: Stable appearance. MEDIASTINUM AND HILAR STRUCTURES: Stable heart size and mediastinal structures. HEART AND VASCULAR STRUCTURES: Stable appearance. BONES: No acute findings. HARDWARE: Unchanged. OTHER: No other significant finding. IMPRESSION: STABLE APPEARANCE OF THE CHEST. TECHNICAL DOCUMENTATION: JOB ID: [id number] [employer]- All Rights Reserved Reading location - IP/workstation name: [email or web address]
[2019-08-12] MEDS ORDERED: FUROSEMIDE INJ/PF 40 MG/4 ML SDV IV ONE (12:14)
[2019-08-12] MEDS ORDERED: MORPHINE SULFATE 10 MG/ML INJ IV ONE (12:27)
[2019-08-12] MEDS ORDERED: HYDRALAZINE HCL INJ/PF 20 MG/1 ML SDV IV ONE (12:27)
[2019-08-12] MEDS ORDERED: FUROSEMIDE INJ/PF 40 MG/4 ML SDV ONE (13:02)
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
--- NOTE | 2019-08-12 14:31 | EKG REPORT ---
SEVERITY:- ABNORMAL ECG - SINUS RHYTHM NONSPECIFIC INTRAVENTRICULAR CONDUCTION DELAY ABNRM R PROG, CONSIDER ASMI OR LEAD PLACEMENT : Confirmed by: Anna Trevino MD 12-Aug-2019 14:31:02
[2019-08-12 14:52] VITALS: BP 178/115
== END 2019-08-12 14:43 | disposition short-term general hospital (02) ==
LOC: ER 10:42
DX: I13.2 Hypertensive heart and chronic kidney disease with heart failure and with stage 5 chronic kidney disease, or end stage renal disease (principal); R06.02 Shortness of breath; E87.79 Other fluid overload; N18.6 End stage renal disease; I50.9 Heart failure, unspecified; F17.200 Nicotine dependence, unspecified, uncomplicated; Z99.2 Dependence on renal dialysis; Z86.718 Personal history of other venous thrombosis and embolism
CPT/HCPCS: 93005; 99291; 99292; 96374; 96375; 36415; 85025; 80053; 71045; 93010; J0360; J2270